=== PATIENT | female | born 1970 | race Caucasian/White ===

== ENCOUNTER 2017-02-28 08:30 | Inpatient (IN) ==
[2017-02-28] MEDS ORDERED: 0.9 % Sodium Chloride 1,000 ML IVC ONE ×2 (09:05→10:18)
[2017-02-28] MEDS ORDERED: *HR* HYDROmorphone (PF) 1 MG/ML SYRINGE IVP ONE ×2 (09:05→11:06)
[2017-02-28] MEDS ORDERED: Ondansetron 4 MG/2 ML VIAL IVP ONE ×2 (09:05→11:07)
--- NOTE | 2017-02-28 09:06 | Emergency Department Note ---
Disposition Clinical Impression: Ureterolithiasis, Pyelonephritis, PETTY (acute kidney injury) Leukocytosis Qualifiers: Leukocytosis type: unspecified Qualified Code(s): D72.829 - Elevated white blood cell count, unspecified Disposition: Admitted As Inpatient Condition: Fair Time of Disposition: 11:11 Abdominal Pain HPI - General Chief Complaint: ED Abdominal Pain Stated Complaint: kidney stone Time Seen by Provider: 02/28/17 08:40 Source: patient Mode of arrival: ambulatory Limitations: no limitations Nursing Notes Reviewed: Yes Vital Signs Reviewed: Yes - History of Present Illness HPI Narrative: 46-year-old female hx HLD, HTN, DM, with history of ureter stones, presents complaining of right flank pain, 8 out of 10, patient states that she has had a history of ureteral stone extractions, records review shows that this was with Dr. Brandon. She did have a CT scan at [facility] yesterday, that showed a kidney stone that "need surgery" per the patient she also has hematuria and dysuria. She has had temperatures 102 degrees at home. She denies fevers today. She reports some nausea but denies vomiting, denies chest pain or shortness of breath. She brought the disc with her to be scan that shows the CT scan from [facility]. Pt Subjective Complaint: abdominal pain, flank pain (R) Consistency: intermittent Location: R flank Pain Severity: severe Pain Scale: 9 Quality: cramping, aching, sharp Radiation: RLQ Improves with: nothing Worsens with: nothing Associated symptoms: Reports: nausea, constipation, dysuria, hematuria. Denies : vomiting, diarrhea, melena Treatments prior to arrival: OTC medications - Related Data Home Medications Medication Instructions Recorded Confirmed Aspirin [Adult Low Dose Aspirin EC] 81 mg PO DAILY 10/28/15 06/08/16 Atorvastatin [Lipitor] 40 mg PO HS 10/28/15 06/08/16 Buspirone HCl [Buspar] 15 mg PO BID 10/28/15 06/08/16 Cholecalciferol (Vitamin D3) 1,000 unit PO DAILY 10/28/15 06/08/16 [Vitamin D3] Docusate Sodium [Dok] 250 mg PO HS 10/28/15 06/08/16 Gabapentin [Neurontin] 1,200 mg PO TID 10/28/15 06/08/16 Ibuprofen [Motrin] 600 mg PO Q8H 10/28/15 06/08/16 Insulin NPH Hum/Reg Insulin Hm 46 unit SQ QPM 10/28/15 06/08/16 [Humulin 70/30 Kwikpen] Insulin NPH/REG 70/30 (HUMAN) 36 unit SQ QAM 10/28/15 06/08/16 [Humulin 70/30 Vial] Losartan Potassium [Cozaar] 50 mg PO HS 10/28/15 06/08/16 Metoprolol [Lopressor] 100 mg PO BID 10/28/15 06/08/16 Omeprazole [PriLOSEC] 40 mg PO HS 10/28/15 06/08/16 Tizanidine HCl 4 mg PO Q8H PRN 10/28/15 06/08/16 Trazodone HCl [TraZODone] 100 mg PO HS 10/28/15 06/08/16 Acetaminophen/Butalbital/Caffe 1 each PO DAILY PRN 06/08/16 06/08/16 [Fioricet] Albuterol Sulfate [Ventolin Hfa] 2 puff IH Q4H PRN 06/08/16 06/08/16 Buprenorphine HCl/Naloxone HCl 1 each SL DAILY 06/08/16 06/08/16 [Buprenorphin-Naloxon 8-2 mg Sl] Quetiapine Fumarate [Seroquel] 100 mg PO HS 06/08/16 06/08/16 Previous Rx's Medication Instructions Recorded Oxycodone HCl/Acetaminophen 1 each PO Q6H PRN #15 tablet 06/08/16 [Endocet 10-325 mg Tablet] Phenazopyridine [Pyridium] 200 mg PO TID #30 tablet 06/08/16 Allergies Allergy/AdvReac Type Severity Reaction Status Date / Time sertraline [From Zoloft] Allergy Swelling Verified 02/28/17 08:38 of Lip/Tongue/Throat propoxyphene AdvReac Itching Verified 02/28/17 08:38 [From Darvocet-N 100] Review of Systems: 10 Point ROS was performed and negative except as per below or as documented in HPI. Constitutional: Denies: fever Eyes: Denies: eye pain ENT: Denies: nasal congestion CV: Denies: chest pain Resp: Denies: cough, hemoptysis GI: +right flank Denies: hematochezia per HPI MSK: Denies: neck pain, extremity pain Skin: Denies: new rashes Neuro: Denies: paresthesias or weakness All systems ED: reviewed and negative except as stated. Review of Systems: As Per HPI Abdominal Pain PMH - Past Medical History Medical history: Reports: diabetes, hepatitis, hyperlipidemia, hypertension, kidney stones, other Female Surgical History: Reports: appendectomy, hysterectomy, other Psychiatric history: Reports: anxiety, depression - Social History Smoking status: Current every day smoker Alcohol use: Reports: none Drug use: Reports: opiates Physical Exam Constitutional: Appears uncomfortable, vital signs stable Eyes: PERRLA, sclera anicteric Neck: normal inspection, neck is supple Resp: CTA bilaterally, no resp distress CV: RRR, no m/g/r GI: normal inspection, soft, mild right lower quadrant tenderness palpation no guarding or rigidity Back: normal inspection + right CVA tenderness Neuro: A&O3, CNII-XII grossly intact, SAHNI MSK: no gross deformities, normal ROM UE and LE Skin: on limited exam, skin intact with no rashes or lesions - General Limitations: no limitations General appearance: alert, in no apparent distress Course Course Narrative: 46-year-old female with suspected nephrolithiasis or ureterolithiasis, I did review the CT scan from [facility] and it appears that she has a 3 mm distal ureter stone with some perinephric stranding, and mild to moderate hydronephrosis. CBC BMP started IV fluids, - Reevaluation(s) Reevaluation #1: I did discuss the case with Dr. Pennington he agrees patient warrants inpatient admission given leukocytosis of 29, we started the patient. Plan Zosyn, she does not meet criteria for Sirs therefore does not need for sepsis however acute pyelonephritis with very elevated leukocytosis, urinalysis was pending, started on Zosyn given 2 L of fluids and more antiemetics and analgesics secondary to pain, urology consult was placed, hospitalist accepted Olimpia Time: 11:55 Vital Signs Temperature 98.2 F 02/28/17 08:34 Pulse Rate 80 02/28/17 08:34 Respiratory Rate 16 02/28/17 08:34 Blood Pressure 114/70 02/28/17 08:34 O2 Sat by Pulse Oximetry 92 02/28/17 08:34 Temperature 98.2 F 02/28/17 08:34 Pulse Rate 80 02/28/17 08:34 Respiratory Rate 16 02/28/17 12:02 Blood Pressure 112/61 02/28/17 12:02 O2 Sat by Pulse Oximetry 92 02/28/17 08:34 Oxygen Delivery Oxygen Delivery Room Air Abdominal Pain - Differential Diagnosis Differential Diagnosis: Likely: calculus of kidney, diverticulitis, gastroenteritis - Medical Records Medical records reviewed: Yes I reviewed the patient's medical records. - Lab Data Lab results reviewed: Yes I reviewed the patient's lab results. Lab results narrative: Urinalysis from 02/27/17 at [facility] shows negative leukocyte esterase and negative nitrate appearance cloudy color orange white blood cells 20-50 RBCs 20-10-20 bacteria 3+, obscured due to color. Result diagrams: 02/28/17 09:18 02/28/17 09:18 Lab Results 02/28/17 02/28/17 Range/Units 09:18 09:18 WBC 29.1 H (4.3-11.1) K/mcL RBC 4.15 (3.82-4.97) M/mcL Hgb 13.2 (11.5-15.4) g/dL Hct 39.4 (35.3-44.9) % MCV 94.9 (83.0-100.0) fL MCH 31.8 (28.0-33.3) pg MCHC 33.5 (31.6-35.5) g/dL RDW 12.3 (11.5-14.5) % Plt Count 156 (140-400) K/mcL MPV 10.5 (9.4-12.4) fL Immature Gran % 1.1 (0-4) % Seg Neutrophils % 89.8 % Lymphocytes % 3.2 % Monocytes % 5.7 % Eosinophils % 0.0 % Basophils % 0.2 % Neutrophils # 26.1 H (1.6-8.9) K/mcL Lymphocytes # 0.9 (0.6-4.6) K/mcL Monocytes # 1.7 H (0.0-1.3) K/mcL Eosinophils # 0.0 (0.0-0.6) K/mcL Basophils # 0.1 (0.0-0.2) K/mcL Dohle Bodies Present A (Not Present) Platelet Estimate Normal (Normal) Sodium 136 (136-145) mEq/L Potassium 3.9 (3.5-4.5) mEq/L Chloride 106 (98-109) mEq/L Carbon Dioxide 22 (19-29) mEq/L BUN 22 H (7-20) mg/dL Creatinine 1.25 H (0.57-1.11) mg/dL Est GFR ( Amer) 56 L (> 60) Est GFR (Non-Af Amer) 46 L (> 60) BUN/Creatinine Ratio 18 (6-26) Glucose 383 H (70-99) mg/dL Calculated Osmolality 301 H (280-300) Calcium 9.2 (8.6-10.8) mg/dL - Radiology Data Radiology results reviewed: Yes I reviewed the patient's radiology results. 3 mm calculus in the distal right ureter causing mild hydronephrosis nonobstructing bilateral renal calculi CT scan. - EKG Data EKG attestation: Yes I reviewed and interpreted this EKG. Attestation Statement - Attestation Attestation: I personally interviewed and examined this patient and my medical decision- making was reviewed with the Resident Physician, Dr. Gordon. I agree with the documented findings, disposition and treatment plan as described except to the extent set forth below. Patient is a 46-year-old white female with a history of insulin-dependent diabetes mellitus who presents to the emergency room in today with complaint of "an infected stone". Patient left [facility] AGAINST MEDICAL ADVICE yesterday after being evaluated and diagnosed with pyelonephritis as well as a knee stone and they wanted to transfer her here as her urologist is part of the [facility]. Patient arrives here complaining of ongoing right flank pain, dysuria and polyuria, as well as nausea and vomiting. Patient states she has been having subjective fevers and chills at home and that her sugar has been elevated. I agree with patient's physical exam findings as documented. Sent with hemodynamically stable with stable vital signs on arrival. Vision IV saline well-established IV fluids were initiated, labs were drawn and sent as well as urine and urine culture ordered. An patient was sent for imaging. Patient's labs were significant for a leukocytosis with a left shift, white count equals 29. Patient also with acute renal insufficiency likely due to dehydration. Patient has hyperglycemia but no acidosis at this time. CT scan shows ureterolithiasis on the right with mild hydro-. Patient's urinalysis is consistent with urinary tract infection. Patient remained hemodynamically stable while in the emergency department. Patient will be admitted for further evaluation of pyelonephritis and concurrent ureterolithiasis. Antibiotics were initiated in the emergency department IV. Case was discussed with both urology who was consulate from the ED as well as the hospitalist. Hospitalist excepted patient for admission.
[2017-02-28 09:25] LABS: Basophils # 0.1 K/mcL (0.0-0.2); Basophils % 0.2 %; Hematocrit 39.4 % (35.3-44.9); Hemoglobin 13.2 g/dL (11.5-15.4); Immature Granulocytes % 1.1 % (0-4); Lymphocytes # 0.9 K/mcL (0.6-4.6); Lymphocytes % 3.2 %; Mean Corpuscular HGB Conc 33.5 g/dL (31.6-35.5); Mean Corpuscular Hemoglobin 31.8 pg (28.0-33.3); Mean Corpuscular Volume 94.9 fL (83.0-100.0); Mean Platelet Volume 10.5 fL (9.4-12.4); Monocytes # 1.7 K/mcL (0.0-1.3); Monocytes % 5.7 %; Neutrophils # 26.1 K/mcL (1.6-8.9); Platelet Count 156 K/mcL (140-400); Red Blood Count 4.15 M/mcL (3.82-4.97); Red Cell Distribution Width 12.3 % (11.5-14.5); Segmented Neutrophils % 89.8 %
[2017-02-28 09:36] LABS: Calcium 9.2 mg/dL (8.6-10.8); Potassium 3.9 mEq/L (3.5-4.5)
[2017-02-28 09:45] LABS: Dohle Bodies Present (Not Present); Platelet Estimate Normal (Normal)
[2017-02-28] MEDS ORDERED: Piperacillin/Tazobactam 3.375 GM in D5% in Water (Mini-Bag+) 100 ML IVPB ONE (09:54)
[2017-02-28 12:16] LABS: Bilirubin,Urine Negative (Negative); Blood,Urine Large (Negative); Clarity,Urine Cloudy (Clear); Color,Urine Dark Yellow (Yellow); Glucose,Urine (UA) >=1000 mg/dL (Normal); Ketones,Urine Negative (Negative); Leukocyte Esterase,Urine Moderate (Negative); Nitrite,Urine Positive (Negative); Protein,Urine >=300 mg/dL (Neg-Trace); Specific Gravity,Urine 1.025 (1.010-1.025); Urobilinogen,Urine Normal (Normal)
[2017-02-28 12:18] LABS: Bacteria,Urine Few per hpf (None-Few); Hyaline Casts,Urine None Seen per lpf (None-Few); RBC,Urine TNTC per hpf (0-3); Squamous Epithelial Cell,Urine Moderate per lpf (None-Few); WBC,Urine TNTC per hpf (0-3)
[2017-02-28] MEDS ORDERED: Ondansetron 4 MG/2 ML VIAL IVP PRN (13:49)
[2017-02-28] MEDS ORDERED: Acetaminophen 325 MG TABLET PO PRN (13:49)
[2017-02-28] MEDS ORDERED: Naloxone 0.4 MG/ML INJ IVP PRN (13:49)
[2017-02-28] MEDS ORDERED: *HR* HYDROcodone/Acet 5/325 mg TABLET PO PRN (13:49)
[2017-02-28] MEDS ORDERED: 0.9 % Sodium Chloride 1,000 ML IVC SCH (14:00)
--- NOTE | 2017-02-28 15:11 | Internal Med History&Physical ---
Date of Encounter: 02/28/17 Time of Encounter: 12:00 Assessment and Plan (1) Pyelonephritis Current visit: Yes Status: Acute Patient presents with right-sided flank pain and abdominal pain that she rates as an 8/10. She states that the pain has been present for the past few days and has become worse with blood in her urine. Patient has a history of renal stones and extractions and is followed by Dr. Brandon. She went to [facility] where a CT scan showed a stone in the right distal ureter. Nephrology consult ordered and discussed with Dr. Pennington. Will continue IV Zosyn for infection coverage. Continue patient's pyridium. NPO after midnight for planned procedure tomorrow. (2) PETTY (acute kidney injury) Current visit: Yes Status: Acute Patient presents with GFR of 46 on admission with complaint of abdominal pain and right-sided flank pain. Patient has history of renal stones and extractions and CT scan currently shows bilateral renal calculi. Will use IV fluids judiciously and monitor follow-up labs. Monitor I&O and daily weight. (3) Ureterolithiasis Current visit: Yes Status: Acute Patient presents with renal calculi confirmed with CT today. Patient has a history of renal stones and extractions. Nephrology consult ordered and discussed with Dr. Pennington who plans to do procedure tomorrow. Will continue IV Zosyn for pyelonephritis, IV fluids judiciously, stair-step pain medications for pain management, and place patient NPO after midnight for procedure. (4) Leukocytosis Current visit: Yes Status: Acute Patient presents with WBCs of 29.1 on admission to ED. IV Zosyn administered in ED and will be continued for infection coverage. Follow-up labs ordered to monitor patient's to WBCs. Qualifiers: Leukocytosis type: unspecified Qualified Code(s): D72.829 - Elevated white blood cell count, unspecified (5) Abdominal wall pain in right flank Current visit: Yes Status: Acute Patient presents with severe abdominal pain in right flank. She rates her pain at 8/10. Will administer stair-step pain medications PRN for pain management. (6) Diabetes Current visit: Yes Status: Chronic Patient presents with history of chronic diabetes with insulin dependency. Blood glucose monitoring before meals at bedtime. A1c ordered. Will continue patient's 46 units of insulin p.m. and administer low-dose correction insulin sliding scale as needed with hypoglycemia protocol ordered. Qualifiers: Diabetes mellitus type: type 2 Diabetes mellitus complication status: with kidney complications Diabetes mellitus complication detail: with chronic kidney disease Diabetes mellitus residential insulin use: with superintendent terminal use Chronic kidney disease stage: stage 3 (moderate) Qualified Code(s): E11.22 - Type 2 diabetes mellitus with diabetic chronic kidney disease; N18.3 - Chronic kidney disease, stage 3 (moderate); Z79.4 - custodial (current) use of insulin (7) HLD (hyperlipidemia) Current visit: Yes Status: Chronic Patient presents with history of chronic hyperlipidemia. Lipid panel ordered. Will continue patient's Lipitor. Qualifiers: Hyperlipidemia type: pure hypercholesterolemia Qualified Code(s): E78.00 - Pure hypercholesterolemia, unspecified; E78.0 - Pure hypercholesterolemia (8) HTN (hypertension) Current visit: Yes Status: Chronic Patient presents with history of chronic hypertension. Will monitor patient and vital signs. Will continue patient's Cozaar. Qualifiers: Hypertension type: essential hypertension Qualified Code(s): I10 - Essential (primary) hypertension (9) DVT prophylaxis Current visit: Yes Status: Acute Patient to be placed on DVT prophylaxis due to current admission protocol and bedrest status. Intermittent SCDs to be placed on patient's LE's. Internal Medicine - H&P: HPI Chief complaint: Abdominal Pain/Right Flank Pain Admitted From: Emergency Dept Plans for Post Hospital Care: Home History of present illness: Ms. Todd is a 46 year old female who presents from the ED with chief complaint of right-sided flank pain and abdominal pain that she rates as an 8/ 10. She states that the pain has been present for the past few days and has become worse with blood in her urine. Patient has a history of renal stones and extractions and is followed by Dr. Brandon. She went to [facility] where a CT scan showed a stone in the right distal ureter. She states she was febrile at home with 102 F fever but she is currently afebrile in the ED. She reports nausea, abdominal pain, and right-sided flank pain that is cramping aching and sharp. She denies chest pain, shortness of breath, recent illness, vomiting, changes in vision, dizziness, presyncope, syncope. Mrs. Todd has a history of diabetes with insulin dependency, hepatitis C, hyperlipidemia, hypertension, and renal stones. She is a current every day smoker smoking 1/2- 2 packs per day. Initial urinalysis in ED was indicative of possible infection so urine culture ordered. CT scan shows a 3 mm distal ureter stone with some perinephritic stranding and mild to moderate hydronephrosis. Mrs. Todd is at moderate risk for continued renal failure based on history and current symptoms are replaced as inpatient status with orders for urology placed in ED. Patient to receive IV Zosyn for infection coverage, IV fluids, stair-step pain management, and cardiac diet with nothing by mouth tonight for a.m. testing. Discussed plan with Dr. Pennington who plans to do procedure tomorrow. Will monitor patient for pain, I&O, and complications. Time spent with patient > 40 minutes. Past Med Surg Social Fam HX - Past Medical History Source: patient Medical history: diabetes, hepatitis, hyperlipidemia, hypertension, kidney stones, other Psychiatric history: anxiety, depression - Past Surgical History Surgical History: appendectomy, hysterectomy (Total) - Social History Smoking Status: Current every day smoker Packs per day: 1.5 - 2 PPD Smokeless Tobacco Status: No Alcohol use: none Drug use: opiates Current living situation: Home Activity Level: Independent ambulation Recent Out of Country Travel Within the Last 8 Weeks: No Exposure or Possible Exposure to Illness During Travel: No - Family History Father Race: Family Member Ethnicity: Non- Living Status: Still Living Hx Family Cardiac Disorders: Yes (HTN) Hx Family Endocrine Disorder: Yes (DM) Mother Race: Family Member Ethnicity: Non- Living Status: Still Living Hx Family Cardiac Disorders: Yes (HTN) Hx Family Endocrine Disorder: Yes (DM) Sister Race: Family Member Ethnicity: Non- Living Status: Still Living Hx Family Endocrine Disorder: Yes (DM) Internal Medicine - H&P: Meds Aspirin [Adult Low Dose Aspirin EC] 81 mg PO DAILY 10/28/15 [History] Atorvastatin [Lipitor] 40 mg PO HS 10/28/15 [History] Cholecalciferol (Vitamin D3) [Vitamin D3] 1,000 unit PO DAILY 10/28/15 [History] Gabapentin [Neurontin] 1,200 mg PO TID 10/28/15 [History] Ibuprofen [Motrin] 600 mg PO Q8H 10/28/15 [History] Insulin NPH Hum/Reg Insulin Hm [Humulin 70/30 Kwikpen] 46 unit SQ QPM 10/28/15 [ History] Losartan Potassium [Cozaar] 50 mg PO HS 10/28/15 [History] Omeprazole [PriLOSEC] 40 mg PO HS 10/28/15 [History] Tizanidine HCl 4 mg PO Q8H PRN 10/28/15 [History] Acetaminophen/Butalbital/Caffe [Fioricet] 1 each PO DAILY PRN 06/08/16 [History] Albuterol Sulfate [Ventolin Hfa] 2 puff IH Q4H PRN 06/08/16 [History] Buprenorphine HCl/Naloxone HCl [Buprenorphin-Naloxon 8-2 mg Sl] 1 each SL TID [History] Phenazopyridine [Pyridium] 200 mg PO TID PRN 02/28/17 [History] Allergies sertraline [From Zoloft] Allergy (Verified 02/28/17 08:38) Swelling of Lip/Tongue/Throat propoxyphene [From Darvocet-N 100] Adverse Reaction (Verified 02/28/17 08:38) Itching All Systems PM: A 10-system review of systems was performed and is negative for pertinent findings except as documented above in the HPI. - Constitutional Constitutional: as per HPI, fever(s) - EENT Eyes: no change in vision, no discharge, no pain, no photophobia Ears: no ear discharge, no ear pain, no tinnitus Nose, mouth and throat: no dysphagia, no nasal discharge, no neck pain, no sore throat - Breasts Breasts: as per HPI - Cardiovascular Cardiovascular ROS IM: no chest pain, no diaphoresis, no dyspnea, no lightheadedness, no palpitations, no syncope - Respiratory Respiratory: no cough, no dyspnea, no wheezing, no excessive phlegm production - Gastrointestinal Gastrointestinal: as per HPI, abdominal pain - Genitourinary Genitourinary: as per HPI, flank pain (Right-sided), hematuria Menstruation: as per HPI - Musculoskeletal Musculoskeletal ROS IM: no numbness, no tingling - Integumentary Integumentary IM: no rash, no unusual bruising - Neurological Neurological ROS: no confusion, no convulsions, no focal weakness, no numbness, no tingling, no tremor(s) - Psychiatric Psychiatric: as per HPI - Endocrine Endocrine IM: as per HPI - Hematologic/Lymphatic Hematologic/Lymphatic: no easy bruising - Allergic/Immunologic Allergic/Immunologic: as per HPI - Constitutional Vitals: Temp Pulse Resp BP Pulse Ox 98.2 F 77 16 100/56 92 02/28/17 13:23 02/28/17 13:23 02/28/17 13:23 02/28/17 13:23 02/28/17 13:23 General appearance: Present: cooperative, mild distress, A&O X 3, pleasant, obese, answers questions appropriately - Head Head exam: Present: atraumatic, normocephalic - Eye Eye exam: Present: PERRL, conjuntiva pink, sclera anicteric Pupils: Present: PERRL - ENT ENT exam: Present: normal exam, normal external ear exam - Neck Neck exam general surgery: Present: normal inspection, supple, trachea midline - Respiratory Respiratory exam: Present: CTAB. Absent: accessory muscle use, rales, rhonchi, wheezes - Cardiovascular Cardiovascular exam: Present: RRR, +S1, +S2. Absent: diastolic murmur, gallop, rubs, systolic murmur - GI/Abdominal GI/Abdominal exam: Present: normal bowel sounds, soft, no peritoneal signs. Absent: distended, tenderness - Rectal Rectal exam: Present: deferred - Additional comments: exam deferred. - Extremities Exam Extremities exam: Present: warm, radial pulses palpable and symetrical. Absent : calf tenderness, cyanotic, pedal edema - Back Exam Back exam: Present: normal inspection - Neurological Exam Neurological exam: Present: CN II-XII intact, oriented X3, no focal deficits. Absent: pronater drift, facial droop, speech deficit - Psychiatric Psychiatric exam: Present: normal affect, normal mood - Skin Skin exam: Present: dry, intact Internal Med - H&P Results - Labs CBC & Chem 7: 02/28/17 09:18 02/28/17 09:18 Labs: Urine 02/28/17 Range/Units 12:07 Urine Color Dark Yellow (Yellow) Urine Clarity Cloudy A (Clear) Urine pH 6.0 (5.0-8.0) pH Units Ur Specific [place] 1.025 (1.010-1.025) Urine Protein >=300 H (Neg-Trace) mg/dL Urine Glucose (UA) >=1000 H (Normal) mg/dL
[2017-02-28] MEDS ORDERED: tiZANidine 4 MG TABLET PO PRN (16:58)
--- NOTE | 2017-02-28 16:58 | Urology - Consult Note ---
Date of Encounter: 02/28/17 Time of Encounter: 16:56 - Assessment and Plan (1) Leukocytosis Current Visit: Yes Status: Acute Assessment and plan: Patient likely has pyelonephritis with this markedly elevated WBC count. Continue broad-spectrum antibiotics. Cultures obtained. Qualifiers: Leukocytosis type: unspecified Qualified Code(s): D72.829 - Elevated white blood cell count, unspecified (2) Ureterolithiasis Current Visit: Yes Status: Acute Assessment and plan: Patient will be scheduled for cystoscopy and bilateral ureteral stent placement tomorrow in the operating room. Urology CN:HPI Consult date: 02/28/17 Reason for consult Urology: Hydronephrosis Requesting physician: Jay Matthews History of present illness: Nerissa is a 46-year-old female with a history of recent trip to outside hospital emergency department. Patient left AMA from that facility. She then came to our facility where she was found to have a elevated white count of 29, 000. CT scan from outside facility revealed bilateral ureteral stones. The patient's right ureteral stone was distal and the left was proximal. Patient states that she has significant bilateral flank discomfort. She has had fevers up to 102/103 at home. No nausea or vomiting at this time. Past Med Surg Social Fam HX - Past Medical History Medical history: diabetes, hepatitis, hyperlipidemia, hypertension, kidney stones, other Psychiatric history: anxiety, depression - Past Surgical History Surgical History: appendectomy, hysterectomy (Total) - Social History Smoking Status: Current every day smoker Packs per day: 1.5 - 2 PPD Smokeless Tobacco Status: No Alcohol use: none Drug use: opiates - Family History Father Race: Family Member Ethnicity: Non- Living Status: Still Living Hx Family Cardiac Disorders: Yes (HTN) Hx Family Endocrine Disorder: Yes (DM) Mother Race: Family Member Ethnicity: Non- Living Status: Still Living Hx Family Cardiac Disorders: Yes (HTN) Hx Family Endocrine Disorder: Yes (DM) Sister Race: Family Member Ethnicity: Non- Living Status: Still Living Hx Family Endocrine Disorder: Yes (DM) Medications and Allergies Aspirin [Adult Low Dose Aspirin EC] 81 mg PO DAILY 10/28/15 [History] Atorvastatin [Lipitor] 40 mg PO HS 10/28/15 [History] Cholecalciferol (Vitamin D3) [Vitamin D3] 1,000 unit PO DAILY 10/28/15 [History] Gabapentin [Neurontin] 1,200 mg PO TID 10/28/15 [History] Ibuprofen [Motrin] 600 mg PO Q8H 10/28/15 [History] Insulin NPH Hum/Reg Insulin Hm [Humulin 70/30 Kwikpen] 46 unit SQ QPM 10/28/15 [ History] Losartan Potassium [Cozaar] 50 mg PO HS 10/28/15 [History] Omeprazole [PriLOSEC] 40 mg PO HS 10/28/15 [History] Tizanidine HCl 4 mg PO Q8H PRN 10/28/15 [History] Acetaminophen/Butalbital/Caffe [Fioricet] 1 each PO DAILY PRN 06/08/16 [History] Albuterol Sulfate [Ventolin Hfa] 2 puff IH Q4H PRN 06/08/16 [History] Buprenorphine HCl/Naloxone HCl [Buprenorphin-Naloxon 8-2 mg Sl] 1 each SL TID [History] Phenazopyridine [Pyridium] 200 mg PO TID PRN 02/28/17 [History] Allergies sertraline [From Zoloft] Allergy (Verified 02/28/17 08:38) Swelling of Lip/Tongue/Throat propoxyphene [From Darvocet-N 100] Adverse Reaction (Verified 02/28/17 08:38) Itching Review of Systems - Constitutional fever(s) - EENT Nose, mouth and throat: no dizziness - Cardiovascular no chest pain - Respiratory no cough - Gastrointestinal abdominal pain - Musculoskeletal back pain - Integumentary no erythema - Neurological no confusion - Hematologic/Lymphatic no easy bleeding - Allergic/Immunologic no throat swelling Exam Initial Vital Signs Temp Pulse Resp BP Pulse Ox 98.2 F 80 16 114/70 92 02/28/17 08:34 02/28/17 08:34 02/28/17 08:34 02/28/17 08:34 02/28/17 08:34 - General physical appearance Present: well developed - Eyes Present: PERRL - ENT Present: normal nares - Neck Present: no masses - Respiratory Present: normal respiratory effort - Cardiovascular Cardiovascular exam IM: RRR - Abdomen Abdomen: Present: soft - Integumentary Present: no rash - Neurologic Present: normal coordination Urology Results - Labs 02/28/17 09:18 02/28/17 09:18 Abnormal lab results WBC 29.1 K/mcL (4.3-11.1) H 02/28/17 09:18 Neutrophils # 26.1 K/mcL (1.6-8.9) H 02/28/17 09:18 Monocytes # 1.7 K/mcL (0.0-1.3) H 02/28/17 09:18 Dohle Bodies Present (Not Present) A 02/28/17 09:18 BUN 22 mg/dL (7-20) H 02/28/17 09:18 Creatinine 1.25 mg/dL (0.57-1.11) H 02/28/17 09:18 Est GFR ( Amer) 56 (> 60) L 02/28/17 09:18 Est GFR (Non-Af Amer) 46 (> 60) L 02/28/17 09:18 Glucose 383 mg/dL (70-99) H 02/28/17 09:18 POC Glucose 310 (58-89) H 02/28/17 16:05 Calculated Osmolality 301 (280-300) H 02/28/17 09:18 Urine Clarity Cloudy (Clear) A 02/28/17 12:07 Urine Protein >=300 mg/dL (Neg-Trace) H 02/28/17 12:07 Urine Glucose (UA) >=1000 mg/dL (Normal) H 02/28/17 12:07 Urine Blood Large (Negative) H 02/28/17 12:07 Urine Nitrite Positive (Negative) A 02/28/17 12:07 Ur Leukocyte Esterase Moderate (Negative) H 02/28/17 12:07 Urine Microscopic RBC TNTC per hpf (0-3) H 02/28/17 12:07 Urine Microscopic WBC TNTC per hpf (0-3) H 02/28/17 12:07 Ur Squamous Epith Cells Moderate per lpf (None-Few) H 02/28/17 12:07 Ur Culture Indicated? YES (NO) A 02/28/17 12:07 All other labs normal. - Imaging CT scan - abdomen: image reviewed CT scan - pelvis: image reviewed Consult Discharge Plan - Plan Referrals: Kaylee Brady, RHIA [Primary Care Provider] -
[2017-02-28] MEDS ORDERED: Dextrose Gel 15 GM PO PRN ×2 (17:00)
[2017-02-28] MEDS ORDERED: D5% in Water 1,000 ML IVC PRN (17:00)
[2017-02-28] MEDS ORDERED: *HR* Dextrose 50 % in Water (Syg) 50 ML SYRINGE IVP PRN (17:00)
[2017-02-28] MEDS ORDERED: Insulin NPH/REG 70/30 100 UNIT/ML (x5UNIT) SQ SCH (18:00)
--- NOTE | 2017-02-28 19:21 | Anesthesia Evaluation PreOp ---
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 HX Other Medical History: Hepatic (Hepatitis), Renal (Acute Renal Injury), Diabetes Type II Anesthesia History: No Prior Anesthetic Complications : No (Hysterectomy) Alcohol Use: none Drug use: opiates Medications and Allergies Aspirin [Adult Low Dose Aspirin EC] 81 mg PO DAILY 10/28/15 [History] Atorvastatin [Lipitor] 40 mg PO HS 10/28/15 [History] Cholecalciferol (Vitamin D3) [Vitamin D3] 1,000 unit PO DAILY 10/28/15 [History] Gabapentin [Neurontin] 1,200 mg PO TID 10/28/15 [History] Ibuprofen [Motrin] 600 mg PO Q8H 10/28/15 [History] Insulin NPH Hum/Reg Insulin Hm [Humulin 70/30 Kwikpen] 46 unit SQ QPM 10/28/15 [ History] Losartan Potassium [Cozaar] 50 mg PO HS 10/28/15 [History] Omeprazole [PriLOSEC] 40 mg PO HS 10/28/15 [History] Tizanidine HCl 4 mg PO Q8H PRN 10/28/15 [History] Acetaminophen/Butalbital/Caffe [Fioricet] 1 each PO DAILY PRN 06/08/16 [History] Albuterol Sulfate [Ventolin Hfa] 2 puff IH Q4H PRN 06/08/16 [History] Buprenorphine HCl/Naloxone HCl [Buprenorphin-Naloxon 8-2 mg Sl] 1 each SL TID [History] Phenazopyridine [Pyridium] 200 mg PO TID PRN 02/28/17 [History] Allergies sertraline [From Zoloft] Allergy (Verified 02/28/17 08:38) Swelling of Lip/Tongue/Throat propoxyphene [From Darvocet-N 100] Adverse Reaction (Verified 02/28/17 08:38) Itching - Meds/Allergy Pre-op Review Medications Reviewed: Yes Allergies Reviewed: Yes Beta Blockers on Current Med List: Yes Anesthesia Results - Labs 02/28/17 09:18 02/28/17 09:18 - Imaging EKG: report reviewed (Sinus Hari) Anesthesia Exam O2 Sat Height 1.68 m Height 1.68 m Weight 86.9 kg Weight 86.545 kg O2 Sat by Pulse Oximetry 94 O2 Sat by Pulse Oximetry 92 O2 Sat by Pulse Oximetry 92 Vital Signs Temp Pulse Resp BP Pulse Ox 98.2 F 80 16 114/70 92 02/28/17 08:34 02/28/17 08:34 02/28/17 08:34 02/28/17 08:34 02/28/17 08:34 Height: 5'6 Weight: 191 lbs NPO (# of Hours): MN Pain Scale: 0 - HEENT Pupil (Motor): Pupils equal, EOMI Mallampati: III Teeth: Normal (Small Mouth opening) Oral Opening: Less than or equal to 3 - BEAN [employer]OUT [employer]ER LOC: Oriented [employer] Motor: Normal RUE, Normal LUE, Normal RLE, Normal LLE, Normal Face [employer] Sensory: Normal: RUE, LUE, RLE, LLE, Face - Cardiac Rhythm: Regular Murmur: None JVD: No Carotid Bruit: No - Pulmonary Breath Sounds: bilateral Clear Respiratory Effort: Symmetrical Anesthesia Assess/Plan ASA Score: 3 (HTN DM Hepatitis) Modified Ricardo Scale for Level of Consciousness: Cooperative, oriented, and tranquil Anesthetic Plan: General Monitoring Plan: Standard Monitors Recovery Plan: PACU (Discussed GA, agrees to proceed)
[2017-02-28] MEDS ORDERED: Insulin LISPRO 300 UNITS/3 ML VIAL SQ SCH (21:00)
[2017-02-28] MEDS: Gabapentin 400 MG CAPSULE PO SCH (21:41)
[2017-02-28] MEDS: Pantoprazole 40 MG VIAL IVP SCH (21:41)
[2017-02-28] MEDS: Nicotine 2 MG GUM BC SCH ×2 (21:42→21:57)
[2017-02-28] MEDS: *HR* Morphine 2 MG/ML SYRINGE IVP PRN (21:50)
[2017-02-28] MEDS: Piperacillin/Tazobactam 3.375 GM in D5% in Water (Mini-Bag+) 100 ML IVPB SCH (22:04)
[2017-03-01 00:04] LABS: Acinetobacter baumannii by PCR Not Detected (Not Detect); Candida albicans by PCR Not Detected (Not Detect); Candida glabrata by PCR Not Detected (Not Detect); Candida krusei by PCR Not Detected (Not Detect); Candida parapsilosis by PCR Not Detected (Not Detect); Candida tropicalis by PCR Not Detected (Not Detect); Enterococcus by PCR Not Detected (Not Detect); Escherichia coli by PCR Not Detected (Not Detect); Klebsiella oxytoca by PCR Not Detected (Not Detect); Klebsiella pneumoniae by PCR ***DETECTED*** (Not Detect); Pseudomonas aeruginosa by PCR Not Detected (Not Detect); Serratia marcescens by PCR Not Detected (Not Detect); Staphylococcus aureus by PCR Not Detected (Not Detect); Streptococcus agalactiae(B)PCR Not Detected (Not Detect); Streptococcus by PCR Not Detected (Not Detect); Streptococcus pneumoniae PCR Not Detected (Not Detect); Streptococcus pyogenes (A) PCR Not Detected (Not Detect); blaKPC Carbapenem-Resist Gene Not Detected (Not Detect); mecA Methicillin-Resist Gene Not Detected (Not Detect); vanA/B Vancomycin-Resist Genes Not Detected (Not Detect)
[2017-03-01] MEDS: Nicotine 2 MG GUM BC SCH ×6 (00:12→21:34)
[2017-03-01] MEDS: Piperacillin/Tazobactam 3.375 GM in D5% in Water (Mini-Bag+) 100 ML IVPB SCH ×3 (00:21→14:10)
[2017-03-01] MEDS: *HR* Morphine 2 MG/ML SYRINGE IVP PRN ×3 (06:12→21:35)
[2017-03-01 06:52] LABS: Basophils # 0.1 K/mcL (0.0-0.2); Basophils % 0.2 %; Eosinophils % 0.1 %; Immature Granulocytes % 0.7 % (0-4); Lymphocytes # 1.2 K/mcL (0.6-4.6); Lymphocytes % 5.9 %; Mean Corpuscular HGB Conc 33.1 g/dL (31.6-35.5); Mean Corpuscular Hemoglobin 31.6 pg (28.0-33.3); Mean Corpuscular Volume 95.4 fL (83.0-100.0); Mean Platelet Volume 11.2 fL (9.4-12.4); Monocytes # 1.2 K/mcL (0.0-1.3); Monocytes % 5.6 %; Neutrophils # 18.3 K/mcL (1.6-8.9); Platelet Count 107 K/mcL (140-400); Red Blood Count 3.67 M/mcL (3.82-4.97); Red Cell Distribution Width 12.7 % (11.5-14.5); Segmented Neutrophils % 87.5 %
[2017-03-01 06:57] LABS: INR 1.3; Prothrombin Time 13.9 Seconds (9.4-12.1)
[2017-03-01 06:59] LABS: Activated Partial Thrombo Time 28.8 Seconds (26.0-36.0)
[2017-03-01 07:02] LABS: Hemoglobin A1C 7.3 %
[2017-03-01 07:07] LABS: Albumin 2.4 g/dL (3.5-5.0); Albumin/Globulin Ratio 0.7 (1.1-2.2); Bilirubin,Total 0.4 mg/dL (0.2-1.2); Calcium 9.3 mg/dL (8.6-10.8); Globulin 3.6 g/dL (2.4-3.5); Magnesium 1.7 mg/dL (1.6-2.6); Potassium 3.7 mEq/L (3.5-4.5)
[2017-03-01 07:22] LABS: Hemoglobin 11.6 g/dL (11.5-15.4)
[2017-03-01] MEDS ORDERED: Cholecalciferol (D-3) 1,000 UNIT TABLET PO SCH (09:00)
[2017-03-01] MEDS ORDERED: Aspirin Enteric Coated 81 MG Tablet PO SCH (09:00)
--- NOTE | 2017-03-01 09:13 | Urology Progress Note ---
Date of Encounter: 03/01/17 Time of Encounter: 09:12 - Assessment and Plan (1) Leukocytosis Current Visit: Yes Status: Acute Qualifiers: Leukocytosis type: unspecified Qualified Code(s): D72.829 - Elevated white blood cell count, unspecified (2) Ureterolithiasis Current Visit: Yes Status: Acute Assessment and plan: to OR today for bilateral ureteral stent placement Progress Note Narrative: patient seen. wbc improved. still with pain. Objective Initial Vital Signs Temp Pulse Resp BP Pulse Ox 98.2 F 80 16 114/70 92 02/28/17 08:34 02/28/17 08:34 02/28/17 08:34 02/28/17 08:34 02/28/17 08:34 - General physical appearance Present: well developed - Abdomen Present: soft - Labs 03/01/17 06:40 03/01/17 06:40 Diabetes panel 03/01/17 03/01/17 Range/Units 06:40 06:40 Sodium 138 (136-145) mEq/L Potassium 3.7 (3.5-4.5) mEq/L Chloride 110 H (98-109) mEq/L Carbon Dioxide 21 (19-29) mEq/L BUN 23 H (7-20) mg/dL Creatinine 1.27 H (0.57-1.11) mg/dL Glucose 209 H (70-99) mg/dL Hemoglobin A1c 7.3 H ( - 5.6) % Calcium 9.3 (8.6-10.8) mg/dL AST 9 (5-34) Units/L ALT 9 (0-55) Units/L Alkaline Phosphatase 88 (38-126) Units/L Albumin 2.4 L (3.5-5.0) g/dL Triglycerides 114 (< 150) mg/dL HDL Cholesterol 23 L (40-59) mg/dL Calcium panel 03/01/17 Range/Units 06:40 Calcium 9.3 (8.6-10.8) mg/dL Albumin 2.4 L (3.5-5.0) g/dL Pituitary panel 03/01/17 Range/Units 06:40 Sodium 138 (136-145) mEq/L Potassium 3.7 (3.5-4.5) mEq/L Chloride 110 H (98-109) mEq/L Carbon Dioxide 21 (19-29) mEq/L BUN 23 H (7-20) mg/dL Creatinine 1.27 H (0.57-1.11) mg/dL Glucose 209 H (70-99) mg/dL Calcium 9.3 (8.6-10.8) mg/dL Adrenal panel 03/01/17 Range/Units 06:40 Sodium 138 (136-145) mEq/L Potassium 3.7 (3.5-4.5) mEq/L Chloride 110 H (98-109) mEq/L Carbon Dioxide 21 (19-29) mEq/L BUN 23 H (7-20) mg/dL Creatinine 1.27 H (0.57-1.11) mg/dL Glucose 209 H (70-99) mg/dL Calcium 9.3 (8.6-10.8) mg/dL Total Bilirubin 0.4 (0.2-1.2) mg/dL AST 9 (5-34) Units/L ALT 9 (0-55) Units/L Alkaline Phosphatase 88 (38-126) Units/L Albumin 2.4 L (3.5-5.0) g/dL Consult Discharge Plan - Plan Referrals: Kaylee Brady, TAWANA [Primary Care Provider] - 03/09/17 1:00 pm
[2017-03-01] MEDS: Gabapentin 400 MG CAPSULE PO SCH ×2 (09:35→16:54)
[2017-03-01] MEDS: Pantoprazole 40 MG VIAL IVP SCH (09:35)
[2017-03-01] MEDS: Insulin LISPRO 300 UNITS/3 ML VIAL SQ SCH ×3 (10:22→16:55)
[2017-03-01] MEDS ORDERED: Lidocaine -MPF 2% 2 ML VIAL ONE (14:45)
[2017-03-01] MEDS ORDERED: *HR* Midazolam HCl 2 MG/2 ML VIAL ONE (14:45)
[2017-03-01] MEDS ORDERED: Ondansetron 4 MG/2 ML VIAL ONE (14:45)
[2017-03-01] MEDS ORDERED: *HR* FentaNYL (PF) 100 MCG/2 ML VIAL ONE (14:45)
[2017-03-01] MEDS ORDERED: Dexamethasone 4 MG/ML VIAL ONE (14:45)
[2017-03-01] MEDS ORDERED: Ketorolac 30 MG/ML VIAL ONE (14:45)
[2017-03-01] MEDS ORDERED: *HR* Propofol 200 MG/20 ML VIAL IVP ONE (14:46)
--- NOTE | 2017-03-01 15:44 | Operative Note ---
Date of procedure: 03/01/17 Pre-op diagnosis: bilateral ureteral stones and pyelonephritis Post-op diagnosis: same Procedure: Cystoscopy and bilateral 6 x 24 cm ureteral stent placement Anesthesia: CECE Surgeon: Marlon Pennington Condition: stable Disposition: PACU Procedure in Detail: Patient was prepped and draped in normal sterile fashion. The cystoscope was inserted into the patient's bladder. At this point I then cannulated the right ureteral orifice using a Glidewire. A 6 x 24 cm stent was then placed with good curl seen in the right kidney and in the bladder. I then repeated this on the left side again with good curl seen in the left kidney and in the bladder. Bladder was drained procedure was ended. Patient will need to continue with IV antibiotics until culture results return.
[2017-03-01] MEDS ORDERED: Acetaminophen IV 1,000 MG/100 ML INFUS..BTL IVPB ONE (16:04)
--- NOTE | 2017-03-01 16:14 | Anesthesia Evaluation Post Op ---
Date of Encounter: 03/01/17 Time of Encounter: 16:13 - Vital Signs Vital Signs: Vital Signs/O2 Sat, Most Current Temp Pulse Resp BP Pulse Ox 97.8 F 64 16 102/61 94 03/01/17 15:48 03/01/17 16:08 03/01/17 16:08 03/01/17 16:08 03/01/17 16:08 - Lungs Lungs: Clear Ascult./Percussion - Airway Airway: Non-obstructed - Cardiovascular Regular Rate - Mental Status Mental Status: Alert & Oriented, Answers Appropriately - Pain Pain Scale: 7 (improved from 9/10) Pain Scale used: Numeric (1 - 10) - Nausea Vomiting Nausea Vomiting: Not Present - Hydration Hydration: NPO, Whitten catheter - Discharge PostOp Status: Transfer Patient to floor
--- NOTE | 2017-03-01 17:37 | Internal Med Progress Note ---
Date of Encounter: 03/01/17 Time of Encounter: 11:45 - Assessment and plan (1) Gram-negative bacteremia Current Visit: Yes Status: Acute Assessment and plan: Secondary to UTI and pyelonephritis. Continue IV antibiotics and repeat blood cultures. Remaining plan as below. (2) Ureterolithiasis Current Visit: Yes Status: Acute Assessment and plan: CT abdomen/pelvis from [facility] shows right distal ureteral stone. Urology consulted, plan for ureteral stent placement today. Continue IV hydration, IV antibiotics. (3) Pyelonephritis Current Visit: Yes Status: Acute Assessment and plan: Patient presents with leukocytosis, subjective fever and right flank tenderness , mild lactic acidosis. Urine culture and one out of one initial blood culture grows gram-negative rods. Continue IV Zosyn, follow up final urine culture and repeat blood cultures. IV hydration and supportive care. Pain control with when necessary IV morphine. (4) PETTY (acute kidney injury) Current Visit: Yes Status: Acute Assessment and plan: Serum creatinine stable. Continue IV hydration. (5) Diabetes Current Visit: Yes Status: Chronic Assessment and plan: Blood sugars noted to be elevated, likely due to stress from underlying infection. Adjust sliding scale insulin and monitor blood sugars closely. Diabetic diet when tolerated. Check hemoglobin A1c. 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 Chronic kidney disease stage: stage 3 (moderate) Qualified Code(s): E11.22 - Type 2 diabetes mellitus with diabetic chronic kidney disease; N18.3 - Chronic kidney disease, stage 3 (moderate); Z79.4 - petroleum terminal plant operator (current) use of insulin (6) HLD (hyperlipidemia) Current Visit: Yes Status: Chronic Qualifiers: Hyperlipidemia type: unspecified Qualified Code(s): E78.5 - Hyperlipidemia , unspecified (7) HTN (hypertension) Current Visit: Yes Status: Chronic Qualifiers: Hypertension type: essential hypertension Qualified Code(s): I10 - Essential (primary) hypertension - Subjective Interval history: Reports lower abdominal and right-sided flank pain. Improved chills, nausea and vomiting. Awaiting ureteral stent placement today. - Constitutional Vitals: Temp Pulse Resp BP Pulse Ox 97.6 F 81 16 110/70 96 03/01/17 16:36 03/01/17 16:36 03/01/17 16:36 03/01/17 16:36 03/01/17 16:36 General appearance: Present: mild distress, A&O X 3, obese, answers questions appropriately - Respiratory Respiratory exam: Present: CTAB. Absent: accessory muscle use, rales, rhonchi, wheezes - Cardiovascular Cardiovascular exam: Present: RRR, +S1, +S2. Absent: diastolic murmur, gallop, rubs, systolic murmur - GI/Abdominal GI/Abdominal exam: Present: normal bowel sounds, soft, no peritoneal signs. Absent: distended, tenderness - Back Exam Back exam: Present: CVA tenderness (R) Internal Medicine: Result - Labs CBC & Chem 7: 03/01/17 06:40 03/01/17 06:40 Labs: Short CBC 03/01/17 Range/Units 06:40 WBC 20.9 H (4.3-11.1) K/mcL Hgb 11.6 D (11.5-15.4) g/dL Hct 35.0 L (35.3-44.9) % Plt Count 107 L (140-400) K/mcL Neutrophils # 18.3 H (1.6-8.9) K/mcL BMP 03/01/17 06:40 Sodium 138 Potassium 3.7 Chloride 110 H Carbon Dioxide 21 BUN 23 H Creatinine 1.27 H Glucose 209 H Calcium 9.3 Liver Function 03/01/17 Range/Units 06:40 Total Bilirubin 0.4 (0.2-1.2) mg/dL AST 9 (5-34) Units/L ALT 9 (0-55) Units/L Alkaline Phosphatase 88 (38-126) Units/L Albumin 2.4 L (3.5-5.0) g/dL - ABG Interpretation ABG results: PT/INR, D-dimer PT 13.9 Seconds (9.4-12.1) H 03/01/17 06:40 - Impressions Impressions Fluoroscopy 03/01/17 15:35 IMPRESSION: Intraprocedural fluoroscopic spot images as above. See separate procedure report for more information. D/ / Jenny Benítez MD / Jenny Benítez MD Interpreting Provider: Jenny Benítez MD Consult Discharge Plan - Plan Referrals: Kaylee Brady CNP [Primary Care Provider] - 03/09/17 1:00 pm
[2017-03-01] MEDS ORDERED: Naloxone 0.4 MG/ML INJ IVP PRN (19:48)
[2017-03-01] MEDS ORDERED: D5% in Water 1,000 ML IVC PRN (19:48)
[2017-03-01] MEDS ORDERED: Dextrose Gel 15 GM PO PRN ×2 (19:48)
[2017-03-01] MEDS ORDERED: *HR* HYDROcodone/Acet 5/325 mg TABLET PO PRN (19:48)
[2017-03-01] MEDS ORDERED: 0.9 % Sodium Chloride 1,000 ML IVC SCH (19:48)
[2017-03-01] MEDS ORDERED: Acetaminophen 325 MG TABLET PO PRN (19:48)
[2017-03-01] MEDS ORDERED: *HR* Dextrose 50 % in Water (Syg) 50 ML SYRINGE IVP PRN (19:48)
[2017-03-01] MEDS ORDERED: Ondansetron 4 MG/2 ML VIAL IVP PRN (19:48)
[2017-03-01] MEDS ORDERED: tiZANidine 4 MG TABLET PO PRN (19:48)
[2017-03-01] MEDS ORDERED: Insulin LISPRO 300 UNITS/3 ML VIAL SQ SCH (21:00)
[2017-03-01] MEDS ORDERED: Gabapentin 400 MG CAPSULE PO SCH (21:00)
[2017-03-01] MEDS ORDERED: Piperacillin/Tazobactam 3.375 GM in D5% in Water (Mini-Bag+) 100 ML IVPB SCH (22:00)
[2017-03-01 23:39] LABS: Enterococcus by PCR Not Detected (Not Detect); blaKPC Carbapenem-Resist Gene Not Detected (Not Detect); mecA Methicillin-Resist Gene Not Detected (Not Detect); vanA/B Vancomycin-Resist Genes Not Detected (Not Detect)
[2017-03-01 23:40] LABS: Acinetobacter baumannii by PCR Not Detected (Not Detect); Candida albicans by PCR Not Detected (Not Detect); Candida glabrata by PCR Not Detected (Not Detect); Candida krusei by PCR Not Detected (Not Detect); Escherichia coli by PCR Not Detected (Not Detect); Klebsiella oxytoca by PCR Not Detected (Not Detect); Klebsiella pneumoniae by PCR ***DETECTED*** (Not Detect); Pseudomonas aeruginosa by PCR Not Detected (Not Detect); Serratia marcescens by PCR Not Detected (Not Detect); Staphylococcus aureus by PCR Not Detected (Not Detect); Streptococcus agalactiae(B)PCR Not Detected (Not Detect); Streptococcus by PCR Not Detected (Not Detect); Streptococcus pneumoniae PCR Not Detected (Not Detect); Streptococcus pyogenes (A) PCR Not Detected (Not Detect)
[2017-03-01 23:41] LABS: Candida parapsilosis by PCR Not Detected (Not Detect); Candida tropicalis by PCR Not Detected (Not Detect)
[2017-03-02] MEDS ORDERED: Insulin Human Regular 10 UNIT in 0.9 % Sodium Chloride 10 ML IV ONE (01:30)
[2017-03-02] MEDS: *HR* Morphine 2 MG/ML SYRINGE IVP PRN (02:12)
[2017-03-02] MEDS: Nicotine 2 MG GUM BC SCH (02:39)
[2017-03-02 04:34] VITALS: BP 122/73
[2017-03-02] MEDS ORDERED: Insulin LISPRO 300 UNITS/3 ML VIAL SQ SCH (07:30)
[2017-03-02] MEDS ORDERED: Pantoprazole 40 MG VIAL IVP SCH (09:00)
[2017-03-02] MEDS ORDERED: Aspirin Enteric Coated 81 MG Tablet PO SCH (09:00)
[2017-03-02] MEDS ORDERED: Cholecalciferol (D-3) 1,000 UNIT TABLET PO SCH (09:00)
[2017-03-02] MEDS ORDERED: Insulin NPH/REG 70/30 100 UNIT/ML (x5UNIT) SQ SCH (18:00)
--- NOTE | 2017-03-03 16:58 | Discharge Summary ---
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 Chronic kidney disease stage: stage 3 (moderate) Qualified Code(s): E11.22 - Type 2 diabetes mellitus with diabetic chronic kidney disease; N18.3 - Chronic kidney disease, stage 3 (moderate); 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 of insulin (6) HLD (hyperlipidemia) Priority: Secondary Status: Chronic Qualifiers: Hyperlipidemia type: unspecified Qualified Code(s): E78.5 - Hyperlipidemia , unspecified (7) HTN (hypertension) Priority: Secondary Status: Chronic Qualifiers: Hypertension type: essential hypertension Qualified Code(s): I10 - Essential (primary) hypertension - Discharge Medications Home Medications: Aspirin [Adult Low Dose Aspirin EC] 81 mg PO DAILY 10/28/15 [History] Atorvastatin [Lipitor] 40 mg PO HS 10/28/15 [History] Cholecalciferol (Vitamin D3) [Vitamin D3] 1,000 unit PO DAILY 10/28/15 [History] Gabapentin [Neurontin] 1,200 mg PO TID 10/28/15 [History] Ibuprofen [Motrin] 600 mg PO Q8H 10/28/15 [History] Insulin NPH Hum/Reg Insulin Hm [Humulin 70/30 Kwikpen] 46 unit SQ QPM 10/28/15 [ History] Losartan Potassium [Cozaar] 50 mg PO HS 10/28/15 [History] Omeprazole [PriLOSEC] 40 mg PO HS 10/28/15 [History] Tizanidine HCl 4 mg PO Q8H PRN 10/28/15 [History] Acetaminophen/Butalbital/Caffe [Fioricet] 1 tab PO DAILY PRN 06/08/16 [History] Albuterol Sulfate [Ventolin Hfa] 2 puff IH Q4H PRN 06/08/16 [History] Buprenorphine HCl/Naloxone HCl [Buprenorphin-Naloxon 8-2 mg Sl] 1 tab SL TID [History] Buspirone HCl [Buspar] 15 mg PO BID 03/01/17 [History] Metoprolol [Lopressor] 100 mg PO BID 03/01/17 [History] Quetiapine Fumarate [SEROquel] 100 mg PO HS 03/01/17 [History] Rosuvastatin [Crestor] 20 mg PO HS 03/01/17 [History] Trazodone HCl 100 mg PO HS 03/01/17 [History] Allergies/Adverse Reactions: Allergies sertraline [From Zoloft] Allergy (Verified 02/28/17 08:38) Swelling of Lip/Tongue/Throat propoxyphene [From Darvocet-N 100] Adverse Reaction (Verified 02/28/17 08:38) Itching Date of admission: 02/28/17 13:49 Primary care physician: Kaylee Brady CNP Consults: 03/01/17 11:53 Consult to Invasive Line Access Team [CONS] Routine Reason for Consult: poor venous access Line Type: EPIV PICC line indications: Limited vascular access Time Notified: 11:53 Call Completed: Yes Anticipated date of discharge: 03/02/17 - Patient Status Disposition: Left Against Medical Advice Condition: Fair - Discharge Instructions Follow Up With: Kaylee Brady CNP [Primary Care Provider] - 03/09/17 1:00 pm Hospital course: Ms. Todd is a 46 year old female who was admitted with severe right-sided pyelonephritis and ureterolithiasis associated with acute kidney injury. Patient was started on aggressive IV hydration, IV antibiotics. She was noted to have leukocytosis and mild lactic acidosis. Urology was consulted and patient underwent bilateral ureteral stent placement. Initial blood and urine cultures grew gram-negative rods, repeat blood cultures were pending. Patient left AGAINST MEDICAL ADVICE this morning, prior to my shift cleaning to have some family issues at home. She was noted to be alert and oriented at time of leaving. - Time Spent with Patient Total time spent providing and/or coordinating discharge services: - Constitutional Vitals: Temp Pulse Resp BP Pulse Ox 98.9 F 67 14 122/73 98 03/02/17 04:32 03/02/17 04:32 03/02/17 04:32 03/02/17 04:32 03/02/17 04:32 General appearance: Present: A&O X 3, obese, answers questions appropriately
== END 2017-03-02 05:00 | disposition left against medical advice (07) | DRG 463 ==
LOC: EMEROO 08:30 → 2NENU 08:30
PROVIDERS: ADMIT Internal Medicine Endocrinology, Diabetes & Metabolism; ATTEND Internal Medicine

== ENCOUNTER 2017-03-27 10:15 | Inpatient (IN) ==
--- NOTE | 2017-03-27 10:36 | Emergency Department Note ---
Disposition Clinical Impression: Pyelonephritis Disposition: Admitted As Inpatient Condition: Good Referrals: Kaylee Brady CNP [Primary Care Provider] - Forms: ED Satisfaction Letter Female Urogenital HPI - General Chief complaint: ED Back Pain/Injury Stated complaint: Kidney infection sent to be admitted Time Seen by Provider: 03/27/17 10:20 Source: patient Mode of arrival: private vehicle Limitations: no limitations Nursing Notes Reviewed: Yes Vital Signs Reviewed: Yes - History of Present Illness HPI Narrative: 46-year-old female history of recurring UTIs and pyelonephritis who presents to the ER with a chief complaint of UTI. Patient states that she was in the hospital roughly 1 month ago whenever she had stents placed for bilateral kidney stones. She reports she still has those stents in. She states that she follows with urology and finished her Levaquin on Tuesday. She states on Tuesday of this week she started developing fevers of 103 at home. She reports continued dysuria and hematuria. She was seen at an outside facility on Tuesday where she had labs and urinalysis performed and was called today by her urologist office to be admitted for IV antibiotics due to her culture. Patient reports a prior history of multiple nephrolithiasis. She denies abdominal pain currently. She does feel nauseated but no vomiting. No other complaints. Pt Subjective Complaint: dysuria, "UTI" Onset (ago): day(s) Radiation: non-radiating Severity: moderate Quality: aching Duration: constant Improves with: none Worsens with: urination Urinary Symptoms: dysuria, hematuria : no Associated symptoms: Reports: nausea/vomiting, fever/chills. Denies: abdominal pain - Related Data Home Medications Medication Instructions Recorded Confirmed Atorvastatin [Lipitor] 40 mg PO HS 10/28/15 03/27/17 Cholecalciferol (Vitamin D3) 1,000 unit PO DAILY 10/28/15 03/27/17 [Vitamin D3] Gabapentin [Neurontin] 1,200 mg PO TID 10/28/15 03/27/17 Ibuprofen [Motrin] 600 mg PO Q8H 10/28/15 03/27/17 Losartan Potassium [Cozaar] 50 mg PO HS 10/28/15 03/27/17 Omeprazole [PriLOSEC] 40 mg PO HS 10/28/15 03/27/17 Tizanidine HCl 4 mg PO Q8H PRN 10/28/15 03/27/17 Acetaminophen/Butalbital/Caffe 1 tab PO DAILY PRN 06/08/16 03/27/17 [Fioricet] Albuterol Sulfate [Ventolin Hfa] 2 puff IH Q4H PRN 06/08/16 03/27/17 Metoprolol [Lopressor] 100 mg PO BID 03/01/17 03/27/17 Aspirin [Aspirin] 81 mg PO DAILY 03/27/17 03/27/17 Buprenorphine HCl [Subutex] 8 mg SL TID 03/27/17 03/27/17 Hyoscyamine SL [Levsin SL] 0.125 mg SL Q6H PRN 03/27/17 03/27/17 Allergies Allergy/AdvReac Type Severity Reaction Status Date / Time levofloxacin [From Levaquin] Allergy See Verified 03/27/17 10:20 Comments sertraline [From Zoloft] Allergy Swelling Verified 03/27/17 10:20 of Lip/Tongue/Throat propoxyphene AdvReac Itching Verified 03/27/17 10:20 [From Darvocet-N 100] All systems ED: reviewed and negative except as stated. Constitutional: Reports: fever, chills Cardiovascular: Denies: chest pain Respiratory: Denies: dyspnea Gastrointestinal: Reports: nausea. Denies: abdominal pain, vomiting, diarrhea Genitourinary: Reports: dysuria, hematuria Past Medical History - Past Medical History Attestation: Yes The following information was validated with the patient. Source: patient Medical history: Reports: diabetes, hepatitis, hyperlipidemia, hypertension, kidney stones, other Surgical history: Reports: appendectomy, hysterectomy Psychiatric history: Reports: anxiety, depression - Social History Smoking Status: Current every day smoker Smokeless Tobacco Status: No Alcohol use: Reports: none Drug use: Reports: opiates Physical Exam - General Limitations: no limitations General appearance: alert, in no apparent distress - Head Head exam: atraumatic, normocephalic, normal inspection - Eye Eye exam: Present: normal appearance, EOMI - ENT ENT exam: normal exam - Neck Neck exam: Present: normal inspection, full ROM - Chest Chest inspection: Present: normal inspection, symmetric chest wall rise - Respiratory Respiratory exam: Present: normal lung sounds bilaterally - Cardiovascular Cardiovascular exam: Present: regular rate, normal rhythm, normal heart sounds - Abdominal Exam Abdominal exam: Present: soft, Non-Tender. Absent: tenderness, distention, rigidity - Extremities Exam Extremities exam: Present: normal inspection, full ROM - Expanded Upper Extremity Exam Shoulder exam: Present: normal inspection, full ROM Arm exam: Present: normal inspection, full ROM Elbow exam: Present: normal inspection, full ROM Forearm/Wrist exam: Present: normal inspection, full ROM Hand exam: Present: normal inspection, full ROM - Expanded Lower Extremity Exam Hip/Pelvis exam: Present: normal inspection, full ROM Upper leg exam: Present: normal inspection, full ROM Knee exam: Present: normal inspection, full ROM Lower leg exam: Present: normal inspection, full ROM Ankle exam: Present: normal inspection, full ROM Foot/toe exam: Present: normal inspection, full ROM Neurovascular/Tendon exam: Absent: motor deficit, sensory deficit - Back Exam Back exam: Present: CVA tenderness (R), CVA tenderness (L) - Neurological Exam Neurological exam: Present: alert, other (GCS 15. Nonfocal neurologic exam. Moves all extremities equally.) - Psychiatric Psychiatric exam: Present: normal affect, normal mood - Skin Skin exam: Present: warm, dry, intact, normal color Course Course Narrative: Patient seen and examined. Vital signs reviewed. She has bilateral flank pain with a prior history of pyelonephritis. Fevers at home of 103. I reviewed her recent culture showing Klebsiella ESBL that were resistant to anything other than IV medications. We will repeat her urinalysis here as well as basic labs and will likely require admission for IV antibiotics for pyelonephritis. - Reevaluation(s) Reevaluation #1: Urinalysis demonstrates a UTI. Her white count here 17. Her most recent cultures were sensitive to Zosyn. Patient admitted to the hospitalist service for further management. Vital Signs Temperature 99.3 F 03/27/17 10:17 Pulse Rate 100 03/27/17 10:17 Respiratory Rate 18 03/27/17 10:17 Blood Pressure 152/92 03/27/17 10:17 O2 Sat by Pulse Oximetry 96 03/27/17 10:17 Temperature 99.3 F 03/27/17 10:17 Pulse Rate 100 03/27/17 10:17 Respiratory Rate 18 03/27/17 10:17 Blood Pressure 152/92 03/27/17 10:17 O2 Sat by Pulse Oximetry 96 03/27/17 10:17 Oxygen Delivery Oxygen Delivery Room Air Urogenital-Female - MDM Narrative Medical decision making narrative: 46-year-old female presents to the ER due to dysuria and flank pain. Prior history of renal stones, ureteral stents and pyelonephritis. She was recently treated and finished on Tuesday. She reports fevers 103 at home. She is a prior history of Klebsiella ESBL that is resistant to oral antibiotics. Her urinalysis today shows UTI here. Her white count was 17. She is afebrile. Patient given IV fluids, morphine and Zosyn for antibiotic coverage. She will likely require admission to the hospital for infectious disease and picc consultation for parenteral antibiotics. Patient accepted to the hospitalist service - Lab Data Lab results reviewed: Yes I reviewed the patient's lab results. Result diagrams: 03/27/17 10:51 03/27/17 10:51 Lab Results 03/27/17 03/27/17 03/27/17 Range/Units 10:35 10:35 10:51 WBC 17.4 H (4.3-11.1) K/mcL RBC 3.77 L (3.82-4.97) M/mcL Hgb 11.5 (11.5-15.4) g/dL Hct 34.9 L (35.3-44.9) % MCV 92.6 (83.0-100.0) fL MCH 30.5 (28.0-33.3) pg MCHC 33.0 (31.6-35.5) g/dL RDW 12.5 (11.5-14.5) % Plt Count 279 (140-400) K/mcL MPV 10.0 (9.4-12.4) fL Immature Gran % 0.4 (0-4) % Seg Neutrophils % 76.9 % Lymphocytes % 10.9 % Monocytes % 9.2 % Eosinophils % 2.4 % Basophils % 0.2 % Neutrophils # 13.4 H (1.6-8.9) K/mcL Lymphocytes # 1.9 (0.6-4.6) K/mcL Monocytes # 1.6 H (0.0-1.3) K/mcL Eosinophils # 0.4 (0.0-0.6) K/mcL Basophils # 0.0 (0.0-0.2) K/mcL Sodium (136-145) mEq/L Potassium (3.5-4.5) mEq/L Chloride (98-109) mEq/L Carbon Dioxide (19-29) mEq/L BUN (7-20) mg/dL Creatinine (0.57-1.11) mg/dL Est GFR ( Amer) (> 60) Est GFR (Non-Af Amer) (> 60) BUN/Creatinine Ratio (6-26) Glucose (70-99) mg/dL Calculated Osmolality (280-300) Calcium (8.6-10.8) mg/dL Urine Color Yellow (Yellow) Urine Clarity Cloudy A (Clear) Urine pH 6.5 (5.0-8.0) pH Units Ur Specific [place] 1.011 (1.010-1.025) Urine Protein 100 H (Neg-Trace) mg/dL Urine Glucose (UA) Normal (Normal) mg/dL Urine Ketones Negative (Negative) mg/dL Urine Blood Large H (Negative) Urine Nitrite Negative (Negative) Urine Bilirubin Negative (Negative) Urine Urobilinogen Normal (Normal) mg/dL Ur Leukocyte Esterase Large H (Negative) Urine Microscopic RBC 30-50 H (0-3) per hpf Urine Microscopic WBC TNTC H (0-3) per hpf Ur Squamous Epith Cells Few (None-Few) per lpf Urine Bacteria Many H (None-Few) per hpf Hyaline Casts None Seen (None-Few) per lpf Ur Culture Indicated? YES A (NO) Urine Test Negative (Negative) 03/27/17 Range/Units 10:51 WBC (4.3-11.1) K/mcL RBC (3.82-4.97) M/mcL Hgb (11.5-15.4) g/dL Hct (35.3-44.9) % MCV (83.0-100.0) fL MCH (28.0-33.3) pg MCHC (31.6-35.5) g/dL RDW (11.5-14.5) % Plt Count (140-400) K/mcL MPV (9.4-12.4) fL Immature Gran % (0-4) % Seg Neutrophils % % Lymphocytes % % Monocytes % % Eosinophils % % Basophils % % Neutrophils # (1.6-8.9) K/mcL Lymphocytes # (0.6-4.6) K/mcL Monocytes # (0.0-1.3) K/mcL Eosinophils # (0.0-0.6) K/mcL Basophils # (0.0-0.2) K/mcL Sodium 135 L (136-145) mEq/L Potassium 3.5 (3.5-4.5) mEq/L Chloride 101 (98-109) mEq/L Carbon Dioxide 23 (19-29) mEq/L BUN 12 (7-20) mg/dL Creatinine 0.86 (0.57-1.11) mg/dL Est GFR ( Amer) > 60 (> 60) Est GFR (Non-Af Amer) > 60 (> 60) BUN/Creatinine Ratio 14 (6-26) Glucose 252 H (70-99) mg/dL Calculated Osmolality 288 (280-300) Calcium 9.5 (8.6-10.8) mg/dL Urine Color (Yellow) Urine Clarity (Clear) Urine pH (5.0-8.0) pH Units Ur Specific [place] (1.010-1.025) Urine Protein (Neg-Trace) mg/dL Urine Glucose (UA) (Normal) mg/dL Urine Ketones (Negative) mg/dL Urine Blood (Negative) Urine Nitrite (Negative) Urine Bilirubin (Negative) Urine Urobilinogen (Normal) mg/dL Ur Leukocyte Esterase (Negative) Urine Microscopic RBC (0-3) per hpf Urine Microscopic WBC (0-3) per hpf Ur Squamous Epith Cells (None-Few) per lpf Urine Bacteria (None-Few) per hpf Hyaline Casts (None-Few) per lpf Ur Culture Indicated? (NO) Urine Test (Negative) S.B.A.R. - S.B.A.R. Situation: Demographics, MOA Background: Presenting Complaint, Relevant PMH, Meds, & Allergies Assessment: Vital Signs, Course and respsone to treatment, Exam Concerns, Patient/Family Expectation, Pertinant Lab Results, Outstanding Labs Recommendation: Barrier(s) to disposition, Recommendation based on pending studies, treatments, or consults S.B.A.R. Report Given to: Carlota HaiderBBecky Alvarez Time: 12:21
[2017-03-27] MEDS ORDERED: Ondansetron 4 MG/2 ML VIAL IVP ONE (10:37)
[2017-03-27] MEDS ORDERED: *HR* Morphine 2 MG/ML SYRINGE IVP ONE (10:37)
[2017-03-27 10:44] LABS: Bilirubin,Urine Negative (Negative); Blood,Urine Large (Negative); Clarity,Urine Cloudy (Clear); Color,Urine Yellow (Yellow); Glucose,Urine (UA) Normal (Normal); Ketones,Urine Negative (Negative); Leukocyte Esterase,Urine Large (Negative); Nitrite,Urine Negative (Negative); PH,Urine 6.5 pH Units (5.0-8.0); Protein,Urine 100 mg/dL (Neg-Trace); Specific Gravity,Urine 1.011 (1.010-1.025); Urobilinogen,Urine Normal (Normal)
[2017-03-27 10:48] LABS: Hyaline Casts,Urine None Seen per lpf (None-Few); Squamous Epithelial Cell,Urine Few per lpf (None-Few); WBC,Urine TNTC per hpf (0-3)
[2017-03-27 10:56] LABS: Basophils % 0.2 %; Eosinophils # 0.4 K/mcL (0.0-0.6); Eosinophils % 2.4 %; Hematocrit 34.9 % (35.3-44.9); Hemoglobin 11.5 g/dL (11.5-15.4); Immature Granulocytes % 0.4 % (0-4); Lymphocytes # 1.9 K/mcL (0.6-4.6); Lymphocytes % 10.9 %; Mean Corpuscular Hemoglobin 30.5 pg (28.0-33.3); Mean Corpuscular Volume 92.6 fL (83.0-100.0); Monocytes # 1.6 K/mcL (0.0-1.3); Monocytes % 9.2 %; Neutrophils # 13.4 K/mcL (1.6-8.9); Platelet Count 279 K/mcL (140-400); Red Blood Count 3.77 M/mcL (3.82-4.97); Red Cell Distribution Width 12.5 % (11.5-14.5); Segmented Neutrophils % 76.9 %
[2017-03-27 10:58] LABS: Bacteria,Urine Many per hpf (None-Few); RBC,Urine 30-50 per hpf (0-3)
[2017-03-27 11:08] LABS: BUN/Creatinine Ratio 14 (6-26); Blood Urea Nitrogen 12 mg/dL (7-20); Calcium 9.5 mg/dL (8.6-10.8); Carbon Dioxide 23 mEq/L (19-29); Chloride 101 mEq/L (98-109); Glucose 252 mg/dL (70-99); Osmolality,Calculated 288 (280-300); Potassium 3.5 mEq/L (3.5-4.5); Sodium 135 mEq/L (136-145); eGFR For African Americans > 60 (> 60); eGFR For Non-African Americans > 60 (> 60)
--- NOTE | 2017-03-27 11:20 | Emergency Department Note ---
START Narrative - START START: I examined this patient and my medical decision-making was reviewed with the MACHINE FIXER/PA/Advanced Practice Nurse/Resident Physician. I agree with the documented findings, disposition and treatment plan as described except to the extent set forth below. ED attending: Patient's emergency medicine resident Dr. GOULD. Please see copy of this note for H&P evaluation and management and ED disposition. We both had independent [id number] time in contact with this patient. Briefly: A 46-year-old female history of bilateral renal stents from stones in infection was on oral antibiotics spiked a fever of 103 Tuesday seen in urgent care sent home. Persistent symptoms here now. Patient will get IV fluids blood tests urinalysis. Admission anticipated. Dr. Pennington is her urologist. Disposition pending. Provided 30 minutes of critical care service for this patient.
[2017-03-27] MEDS ORDERED: Piperacillin/Tazobactam 3.375 GM in D5% in Water (Mini-Bag+) 100 ML IVPB ONE (11:42)
[2017-03-27] MEDS ORDERED: *HR* HYDROcodone/Acet 5/325 mg TABLET PO PRN (14:18)
[2017-03-27] MEDS ORDERED: Naloxone 0.4 MG/ML INJ IVP PRN (14:18)
[2017-03-27] MEDS ORDERED: Ondansetron 4 MG/2 ML VIAL IVP PRN (14:18)
[2017-03-27] MEDS ORDERED: *HR* Morphine 2 MG/ML SYRINGE IVP PRN (14:18)
[2017-03-27] MEDS ORDERED: Acetaminophen 325 MG TABLET PO PRN (14:18)
[2017-03-27] MEDS ORDERED: Acetaminophen/Butalbital/CaffeineTABLET PO PRN (14:25)
[2017-03-27] MEDS ORDERED: Hyoscyamine SL 0.125 MG TAB.SUBL SL PRN (14:25)
[2017-03-27] MEDS ORDERED: tiZANidine 4 MG TABLET PO PRN (14:25)
[2017-03-27] MEDS ORDERED: Dextrose Gel 15 GM PO PRN ×2 (14:28)
[2017-03-27] MEDS ORDERED: D5% in Water 1,000 ML IVC PRN (14:28)
[2017-03-27] MEDS ORDERED: *HR* Dextrose 50 % in Water (Syg) 50 ML SYRINGE IVP PRN (14:28)
[2017-03-27] MEDS ORDERED: *HR* Buprenorphine HCl 8 MG TAB.SUBL SL SCH (15:00)
[2017-03-27] MEDS: *HR* Heparin 5,000 UNIT/ML VIAL SQ SCH (15:18)
[2017-03-27] MEDS: Pantoprazole 40 MG VIAL IVP SCH (15:18)
[2017-03-27] MEDS: Ibuprofen 600 MG TABLET PO SCH (16:54)
[2017-03-27] MEDS: Ertapenem 1,000 MG in 0.9 % Sodium Chloride Mini Bag 100 ML IVPB SCH (16:55)
[2017-03-27] MEDS: Gabapentin 400 MG CAPSULE PO SCH ×2 (16:55→19:51)
[2017-03-27] MEDS: 0.9 % Sodium Chloride 1,000 ML IVC SCH (16:58)
[2017-03-27] MEDS: Insulin LISPRO 300 UNITS/3 ML VIAL SQ SCH ×2 (17:06→19:52)
--- NOTE | 2017-03-27 18:10 | Event Note ---
Date of Encounter: 03/27/17 Time of Encounter: 18:06 1. Sepsis secondary to urinary tract infection/possible acute pyelonephritis with history of Klebsiella and Escherichia coli both ESBL Completed 14 days of Levaquin recently treated Klebsiella, Escherichia coli in the past was resistant to Levaquin ( left AMA during last admission) Start ertapenem tenia Zosyn given in the ER Urine culture pending, blood cultures, start IV fluids with aggressive hydration Order lactic acid, consult urology 2. Leukocytosis secondary to sepsis (had a fever of 103 at home) 3. Diabetes type 2 insulin-dependent, use insulin sliding scale 4. History of opioid abuse, continue buprenorphine 5. Hypertension stable Protonix for GI prophylaxis and subcutaneous heparin for DVT prophylaxis the patient will be admitted as inpatient, expected stay [place] midnights. Full code. Time spent on this admission 40 minutes. H&P to be completed by EDDY Matthews
[2017-03-27] MEDS: *HR* Buprenorphine HCl 2 MG SUBLINGUAL TABLET SL SCH (19:52)
[2017-03-27] MEDS: LOSART PO SCH (19:52)
[2017-03-27] MEDS: Metoprolol 100 MG TABLET PO SCH (19:52)
--- NOTE | 2017-03-27 22:21 | Internal Med History&Physical ---
<Jay Matthews - Last Filed: 03/27/17 22:59> Date of Encounter: 03/27/17 Time of Encounter: 13:00 Assessment and Plan (1) Sepsis Current visit: Yes Status: Acute Patient presents with acute sepsis secondary to UTI/possible acute pyelonephritis. Patient's previous medical history shows history of Klebsiella and Escherichia coli with ESBL. Patient reports completing 14 days of Levaquin recently for Klebsiella. Patient's previous history shows Escherichia coli in the past was resistant to Levaquin. Will administer ertapenem 1000 mg IVPB daily. Urine culture ordered. Qualifiers: Sepsis type: sepsis due to unspecified organism Qualified Code(s): A41.9 - Sepsis, unspecified organism (2) Leukocytosis Current visit: Yes Status: Acute Patient presents with acute leukocytosis secondary to sepsis. On admission to ED, patient's WBC was 17.4. Patient reports fever at home of 103F. Will monitor WBC through follow-up labs. Qualifiers: Leukocytosis type: unspecified Qualified Code(s): D72.829 - Elevated white blood cell count, unspecified (3) Diabetes Current visit: Yes Status: Chronic Presents with history of chronic diabetes with insulin dependency. Will administer low-dose insulin sliding scale and hypoglycemic protocol. A1c ordered. Blood glucose monitoring before meals at bedtime. Qualifiers: Diabetes mellitus type: type 2 Diabetes mellitus complication status: without complication Diabetes mellitus penitentiary insulin use: with penitentiary use Qualified Code(s): E11.9 - Type 2 diabetes mellitus without complications ; Z79.4 - prison (current) use of insulin (4) History of opioid abuse Current visit: Yes Status: Chronic Patient presents with history of opioid abuse. We will continue buprenorphine. (5) HTN (hypertension) Current visit: Yes Status: Chronic Patient presents with history of chronic hypertension. Will monitor patient and vital signs continue patient's Cozaar and metoprolol. Qualifiers: Hypertension type: essential hypertension Qualified Code(s): I10 - Essential (primary) hypertension (6) HLD (hyperlipidemia) Current visit: Yes Status: Chronic Patient presents with history of chronic hyperlipidemia. Lipid panel ordered and will continue patient's Lipitor. Qualifiers: Hyperlipidemia type: pure hypercholesterolemia Qualified Code(s): E78.00 - Pure hypercholesterolemia, unspecified; E78.0 - Pure hypercholesterolemia (7) DVT prophylaxis Current visit: Yes Status: Acute Patient to be placed on DVT prophylaxis due to current admission protocol and current symptoms. Heparin 5000 units SQ every 8 ordered. Internal Medicine - H&P: HPI Chief complaint: Back pain/UTI Admitted From: Emergency Dept Plans for Post Hospital Care: Home History of present illness: Ms. Todd is a 46 year old female with PMH of diabetes, hepatitis, HLD, HTN, and kidney stones who presents from the ED with chief complaint of back pain and UTI. Patient states she was in hospital approximately 1 month ago when she had bilateral ureteral stents placed for kidney stones. Patient is followed by urology and was placed on Levaquin which she finished on Tuesday. Patient states Tuesday she developed fevers at home as high as 103F. She also reports dysuria, hematuria, and nausea. Patient denies chest pain, vomiting, chills, abdominal pain, changes in vision, diarrhea, dizziness, lightheadedness, presyncope, or syncope. She reports she is a current smoker smoking 1 pack per day. Patient's allergies include Levaquin, Zoloft, and Darvocet. Upon admission the ED, patient meets sepsis criteria based on pulse rate of 100 bpm, WBC 17.4, and temperature prior to coming to ED of 103F. Patient's initial U/A in ED indicated a urine culture. Information taken from patient, chart review, and previous medical records. Patient is currently hemodynamically stable and at high risk for increased infection due to sepsis criteria, current symptoms, and risk factors and will be placed as inpatient status. Time spent with patient greater than 40 minutes. Past Med Surg Social Fam HX - Past Medical History Source: patient, old records reviewed Medical history: diabetes, hepatitis, hyperlipidemia, hypertension, kidney stones, other Psychiatric history: anxiety, depression - Past Surgical History Surgical History: appendectomy, hysterectomy - Social History Smoking Status: Current every day smoker Packs per day: 1 PPD Smokeless Tobacco Status: No Alcohol use: none Drug use: opiates Current living situation: Home Activity Level: Independent ambulation Recent Out of Country Travel Within the Last 8 Weeks: No Exposure or Possible Exposure to Illness During Travel: No - Family History Father Race: Family Member Ethnicity: Non- Living Status: Age at : 69 Cause of : HD Hx Family Cardiac Disorders: Yes (HTN, HD, HLD) Hx Family Endocrine Disorder: Yes (DM) Mother Race: Family Member Ethnicity: Non- Living Status: Still Living Hx Family Cardiac Disorders: Yes (HTN) Hx Family Genitourinary Disorders: Yes (Kidney Stones) Hx Family Endocrine Disorder: Yes (DM) Sister Race: Family Member Ethnicity: Non- Living Status: Still Living Hx Family Genitourinary Disorders: Yes (Kidney Stones) Hx Family Endocrine Disorder: Yes (DM) Internal Medicine - H&P: Meds Atorvastatin [Lipitor] 40 mg PO HS 10/28/15 [History] Cholecalciferol (Vitamin D3) [Vitamin D3] 1,000 unit PO DAILY 10/28/15 [History] Gabapentin [Neurontin] 1,200 mg PO TID 10/28/15 [History] Ibuprofen [Motrin] 600 mg PO Q8H 10/28/15 [History] Losartan Potassium [Cozaar] 50 mg PO HS 10/28/15 [History] Omeprazole [PriLOSEC] 40 mg PO HS 10/28/15 [History] Tizanidine HCl 4 mg PO Q8H PRN 10/28/15 [History] Acetaminophen/Butalbital/Caffe [Fioricet] 1 tab PO DAILY PRN 06/08/16 [History] Albuterol Sulfate [Ventolin Hfa] 2 puff IH Q4H PRN 06/08/16 [History] Metoprolol [Lopressor] 100 mg PO BID 03/01/17 [History] Aspirin [Aspirin] 81 mg PO DAILY 03/27/17 [History] Buprenorphine HCl [Subutex] 8 mg SL TID 03/27/17 [History] Hyoscyamine SL [Levsin SL] 0.125 mg SL Q6H PRN 03/27/17 [History] 3 Allergy/AdvReac Type Severity Reaction Status Date / Time levofloxacin [From Levaquin] Allergy See Verified 03/27/17 10:20 Comments sertraline [From Zoloft] Allergy Swelling Verified 03/27/17 10:20 of Lip/Tongue/Throat propoxyphene AdvReac Itching Verified 03/27/17 10:20 [From Darvocet-N 100] All Systems PM: A 10-system review of systems was performed and is negative for pertinent findings except as documented above in the HPI. - Constitutional Constitutional: as per HPI, fever(s), no chills, no night sweats - EENT Eyes: no change in vision, no discharge, no pain, no photophobia Ears: no ear discharge, no ear pain, no tinnitus Nose, mouth and throat: no dysphagia, no nasal discharge, no neck pain, no sore throat - Breasts Breasts: as per HPI - Cardiovascular Cardiovascular ROS IM: no chest pain, no diaphoresis, no dyspnea, no lightheadedness, no palpitations, no syncope - Respiratory Respiratory: no cough, no dyspnea, no wheezing, no excessive phlegm production - Gastrointestinal Gastrointestinal: as per HPI, nausea - Genitourinary Genitourinary: as per HPI, difficulty urinating, dysuria, hematuria Menstruation: as per HPI - Musculoskeletal Musculoskeletal ROS IM: no numbness, no tingling - Integumentary Integumentary IM: no rash, no unusual bruising - Neurological Neurological ROS: no confusion, no convulsions, no focal weakness, no numbness, no tingling, no tremor(s) - Psychiatric Psychiatric: as per HPI - Endocrine Endocrine IM: as per HPI - Hematologic/Lymphatic Hematologic/Lymphatic: no easy bruising - Allergic/Immunologic Allergic/Immunologic: as per HPI - Constitutional Vitals: Temp Pulse Resp BP Pulse Ox 99.3 F 78 16 119/68 94 03/27/17 18:53 03/27/17 18:53 03/27/17 18:53 03/27/17 18:53 03/27/17 18:53 General appearance: Present: cooperative, mild distress, A&O X 3, pleasant, obese, answers questions appropriately - Head Head exam: Present: atraumatic, normocephalic - Eye Eye exam: Present: PERRL, conjuntiva pink, sclera anicteric Pupils: Present: PERRL - ENT ENT exam: Present: normal exam, normal external ear exam - Neck Neck exam general surgery: Present: supple, trachea midline. Absent: lymphadenopathy - Respiratory Respiratory exam: Present: CTAB. Absent: accessory muscle use, rales, rhonchi, wheezes - Cardiovascular Cardiovascular exam: Present: RRR, +S1, +S2. Absent: diastolic murmur, gallop, rubs, systolic murmur - GI/Abdominal GI/Abdominal exam: Present: normal bowel sounds, soft, no peritoneal signs. Absent: distended, tenderness - Rectal Rectal exam: Present: deferred - Additional comments: exam deferred. - Extremities Exam Extremities exam: Present: warm, radial pulses palpable and symmetrical. Absent : calf tenderness, cyanotic, pedal edema - Back Exam Back exam: Present: normal inspection - Neurological Exam Neurological exam: Present: CN II-XII intact, oriented X3, no focal deficits. Absent: pronater drift, facial droop, speech deficit - Psychiatric Psychiatric exam: Present: normal affect, normal mood - Skin Skin exam: Present: dry, intact Internal Med - H&P Results - Labs CBC & Chem 7: 03/27/17 10:51 03/27/17 10:51 <Tai Ferro H - Last Filed: 03/28/17 15:54> Date of Encounter: 03/28/17 Internal Medicine - H&P: HPI History of present illness: Ms. Todd is a 46 year old female All Systems PM: A 10-system review of systems was performed and is negative for pertinent findings except as documented above in the HPI. - Constitutional Vitals: Temp Pulse Resp BP Pulse Ox 98.3 F 66 18 102/57 94 03/28/17 15:16 03/28/17 15:16 03/28/17 15:16 03/28/17 15:16 03/28/17 15:16 Internal Med - H&P Results - Labs CBC & Chem 7: 03/28/17 03:23 03/28/17 03:23 Labs: Short CBC 03/28/17 Range/Units 03:23 WBC 20.0 H (4.3-11.1) K/mcL Hgb 11.9 (11.5-15.4) g/dL Hct 36.5 (35.3-44.9) % Plt Count 264 (140-400) K/mcL Neutrophils # 16.4 H (1.6-8.9) K/mcL BMP 03/28/17 03:23 Sodium 138 Potassium 3.9 Chloride 101 Carbon Dioxide 29 BUN 12 Creatinine 1.03 Glucose 265 H Calcium 9.5 Liver Function 03/28/17 Range/Units 03:23 Total Bilirubin 0.5 (0.2-1.2) mg/dL Direct Bilirubin 0.3 (0.0-0.5) mg/dL AST 16 (5-34) Units/L ALT 16 (0-55) Units/L Alkaline Phosphatase 86 (38-126) Units/L Albumin 2.6 L (3.5-5.0) g/dL - Attending Attestation 1. Sepsis secondary to urinary tract infection/possible acute pyelonephritis with history of Klebsiella and Escherichia coli both ESBL Completed 14 days of Levaquin recently treated Klebsiella, Escherichia coli in the past was resistant to Levaquin ( left AMA during last admission) Start ertapenem tenia Zosyn given in the ER Urine culture pending, blood cultures, start IV fluids with aggressive hydration Order lactic acid, consult urology 2. Leukocytosis secondary to sepsis (had a fever of 103 at home) 3. Diabetes type 2 insulin-dependent, use insulin sliding scale 4. History of opioid abuse, continue buprenorphine 5. Hypertension stable Protonix for GI prophylaxis and subcutaneous heparin for DVT prophylaxis the patient will be admitted as inpatient, expected stay [place] midnights. Full code. Time spent on this admission 40 minutes.
[2017-03-28] MEDS: Ibuprofen 600 MG TABLET PO SCH ×4 (00:16→20:23)
[2017-03-28] MEDS: 0.9 % Sodium Chloride 1,000 ML IVC SCH ×4 (00:16→16:13)
[2017-03-28] MEDS: *HR* Heparin 5,000 UNIT/ML VIAL SQ SCH ×3 (00:50→16:08)
[2017-03-28] MEDS: *HR* Morphine 2 MG/ML SYRINGE IVP PRN ×6 (02:07→23:00)
[2017-03-28 03:32] LABS: Basophils % 0.2 %; Eosinophils # 0.3 K/mcL (0.0-0.6); Eosinophils % 1.3 %; Hematocrit 36.5 % (35.3-44.9); Hemoglobin 11.9 g/dL (11.5-15.4); Lymphocytes # 1.3 K/mcL (0.6-4.6); Lymphocytes % 6.5 %; Mean Corpuscular HGB Conc 32.6 g/dL (31.6-35.5); Mean Corpuscular Volume 95.1 fL (83.0-100.0); Mean Platelet Volume 9.8 fL (9.4-12.4); Monocytes # 1.8 K/mcL (0.0-1.3); Monocytes % 8.8 %; Neutrophils # 16.4 K/mcL (1.6-8.9); Platelet Count 264 K/mcL (140-400); Red Blood Count 3.84 M/mcL (3.82-4.97); Red Cell Distribution Width 12.7 % (11.5-14.5); Segmented Neutrophils % 82.2 %
[2017-03-28 03:37] LABS: INR 1.3; Prothrombin Time 13.6 Seconds (9.4-12.1)
[2017-03-28 03:39] LABS: Activated Partial Thrombo Time 29.3 Seconds (26.0-36.0)
[2017-03-28] MEDS ORDERED: Acetaminophen 325 MG TABLET PO PRN (03:44)
[2017-03-28 03:49] LABS: Alanine Aminotransferase 16 Units/L (0-55); Albumin 2.6 g/dL (3.5-5.0); Albumin/Globulin Ratio 0.6 (1.1-2.2); Alkaline Phosphatase 86 Units/L (38-126); Aspartate Amino Transferase 16 Units/L (5-34); BUN/Creatinine Ratio 12 (6-26); Bilirubin,Direct 0.3 mg/dL (0.0-0.5); Bilirubin,Indirect 0.2 mg/dL (0.0-1.2); Bilirubin,Total 0.5 mg/dL (0.2-1.2); Blood Urea Nitrogen 12 mg/dL (7-20); Calcium 9.5 mg/dL (8.6-10.8); Carbon Dioxide 29 mEq/L (19-29); Chloride 101 mEq/L (98-109); Chol/HDL Ratio 5.2 (0-4.9); Cholesterol 93 mg/dL (< 200); Globulin 4.7 g/dL (2.4-3.5); Glucose 265 mg/dL (70-99); HDL Cholesterol 18 mg/dL (40-59); LDL Cholesterol,Calculated 54 mg/dL (0-99); Magnesium 1.8 mg/dL (1.6-2.6); Osmolality,Calculated 295 (280-300); Potassium 3.9 mEq/L (3.5-4.5); Sodium 138 mEq/L (136-145); Total Protein 7.3 g/dL (6.0-8.3); Triglycerides 103 mg/dL (< 150); eGFR For African Americans > 60 (> 60); eGFR For Non-African Americans 58 (> 60)
[2017-03-28] MEDS: Gabapentin 400 MG CAPSULE PO SCH ×3 (08:30→20:22)
[2017-03-28] MEDS: Ertapenem 1,000 MG in 0.9 % Sodium Chloride Mini Bag 100 ML IVPB SCH (08:30)
[2017-03-28] MEDS: Metoprolol 100 MG TABLET PO SCH ×2 (08:31→20:23)
[2017-03-28] MEDS: Cholecalciferol (D-3) 1,000 UNIT TABLET PO SCH (08:31)
[2017-03-28] MEDS: Pantoprazole 40 MG VIAL IVP SCH (08:31)
[2017-03-28] MEDS: *HR* Buprenorphine HCl 2 MG SUBLINGUAL TABLET SL SCH ×3 (08:31→20:22)
[2017-03-28] MEDS: Aspirin 81 MG TAB.CHEW PO SCH (08:31)
[2017-03-28] MEDS: Insulin LISPRO 300 UNITS/3 ML VIAL SQ SCH ×4 (08:35→20:19)
--- NOTE | 2017-03-28 16:05 | Internal Med Progress Note ---
Date of Encounter: 03/28/17 Time of Encounter: 16:02 - Assessment and plan (1) Sepsis Current Visit: Yes Status: Acute Assessment and plan: Sepsis secondary to urinary tract infection/possible acute pyelonephritis with history of Klebsiella and Escherichia coli both ESBL Completed 14 days of Levaquin recently treated Klebsiella, Escherichia coli in the past was resistant to Levaquin ( left AMA during last admission) Continue ertapenem day 2 Urine culture growing Klebsiella ESBL sensitive only to carbapenems and gentamicin IV fluids consult urology to remove ureteral stents Qualifiers: Sepsis type: sepsis due to unspecified organism Qualified Code(s): A41.9 - Sepsis, unspecified organism (2) Leukocytosis Current Visit: Yes Status: Acute Qualifiers: Leukocytosis type: unspecified Qualified Code(s): D72.829 - Elevated white blood cell count, unspecified (3) Pyelonephritis Current Visit: Yes Status: Acute (4) Diabetes Current Visit: Yes Status: Chronic Assessment and plan: Continue insulin sliding scale Qualifiers: Diabetes mellitus type: type 2 Diabetes mellitus complication status: without complication Diabetes mellitus snf insulin use: with intermediate project manager use Qualified Code(s): E11.9 - Type 2 diabetes mellitus without complications ; Z79.4 - local company intermodal truck driver (current) use of insulin (5) HLD (hyperlipidemia) Current Visit: Yes Status: Chronic Qualifiers: Hyperlipidemia type: pure hypercholesterolemia Qualified Code(s): E78.00 - Pure hypercholesterolemia, unspecified; E78.0 - Pure hypercholesterolemia (6) HTN (hypertension) Current Visit: Yes Status: Chronic Assessment and plan: Stable Qualifiers: Hypertension type: essential hypertension Qualified Code(s): I10 - Essential (primary) hypertension (7) History of opioid abuse Current Visit: Yes Status: Chronic Assessment and plan: Continue buprenorphine - Subjective Interval history: Feeling better, had a fever 100.8 this morning, denies any chest pain or shortness of breath, complains of abdominal pain mainly on the right side, mild dysuria, no diarrhea - Constitutional Vitals: Temp Pulse Resp BP Pulse Ox 98.3 F 66 18 102/57 94 03/28/17 15:16 03/28/17 15:16 03/28/17 15:16 03/28/17 15:16 03/28/17 15:16 General appearance: Present: cooperative, mild distress, A&O X 3, pleasant, obese, answers questions appropriately - Head Head exam: Present: atraumatic, normocephalic - Eye Eye exam: Present: PERRL, conjuntiva pink, sclera anicteric Pupils: Present: PERRL - Neck Neck exam general surgery: Present: supple, trachea midline. Absent: lymphadenopathy - Respiratory Respiratory exam: Present: CTAB. Absent: accessory muscle use, rales, rhonchi, wheezes - Cardiovascular Cardiovascular exam: Present: RRR, +S1, +S2. Absent: diastolic murmur, gallop, rubs, systolic murmur - GI/Abdominal GI/Abdominal exam: Present: distended, normal bowel sounds, soft, tenderness ( Right flank tenderness), no peritoneal signs - Extremities Exam Extremities exam: Present: warm, radial pulses palpable and symmetrical. Absent : calf tenderness, cyanotic, pedal edema - Neurological Exam Neurological exam: Present: CN II-XII intact, oriented X3, no focal deficits. Absent: pronater drift, facial droop, speech deficit - Skin Skin exam: Present: dry, intact Internal Medicine: Result - Labs CBC & Chem 7: 03/28/17 03:23 03/28/17 03:23 Labs: Short CBC 03/28/17 Range/Units 03:23 WBC 20.0 H (4.3-11.1) K/mcL Hgb 11.9 (11.5-15.4) g/dL Hct 36.5 (35.3-44.9) % Plt Count 264 (140-400) K/mcL Neutrophils # 16.4 H (1.6-8.9) K/mcL BMP 03/28/17 03:23 Sodium 138 Potassium 3.9 Chloride 101 Carbon Dioxide 29 BUN 12 Creatinine 1.03 Glucose 265 H Calcium 9.5 Liver Function 03/28/17 Range/Units 03:23 Total Bilirubin 0.5 (0.2-1.2) mg/dL Direct Bilirubin 0.3 (0.0-0.5) mg/dL AST 16 (5-34) Units/L ALT 16 (0-55) Units/L Alkaline Phosphatase 86 (38-126) Units/L Albumin 2.6 L (3.5-5.0) g/dL - ABG Interpretation ABG results: PT/INR, D-dimer PT 13.6 Seconds (9.4-12.1) H 03/28/17 03:23 Consult Discharge Plan - Plan Referrals: Kaylee Brady CNP [Primary Care Provider] -
[2017-03-28] MEDS ORDERED: Nicotine 2 MG GUM BC PRN (16:27)
[2017-03-28] MEDS: LOSART PO SCH (20:23)
[2017-03-29] MEDS: *HR* Heparin 5,000 UNIT/ML VIAL SQ SCH ×3 (00:17→16:31)
[2017-03-29] MEDS: 0.9 % Sodium Chloride 1,000 ML IVC SCH ×2 (02:15→12:25)
[2017-03-29] MEDS: *HR* Morphine 2 MG/ML SYRINGE IVP PRN ×5 (02:19→20:46)
[2017-03-29] MEDS: Ibuprofen 600 MG TABLET PO SCH ×3 (05:19→21:53)
[2017-03-29 05:44] LABS: Hematocrit 33.3 % (35.3-44.9); Hemoglobin 10.7 g/dL (11.5-15.4); Mean Corpuscular HGB Conc 32.1 g/dL (31.6-35.5); Mean Corpuscular Hemoglobin 30.5 pg (28.0-33.3); Mean Corpuscular Volume 94.9 fL (83.0-100.0); Mean Platelet Volume 10.6 fL (9.4-12.4); Platelet Count 263 K/mcL (140-400); Red Blood Count 3.51 M/mcL (3.82-4.97); Red Cell Distribution Width 12.5 % (11.5-14.5)
[2017-03-29 05:57] LABS: BUN/Creatinine Ratio 10 (6-26); Blood Urea Nitrogen 8 mg/dL (7-20); Calcium 9.1 mg/dL (8.6-10.8); Carbon Dioxide 26 mEq/L (19-29); Chloride 108 mEq/L (98-109); Glucose 225 mg/dL (70-99); Osmolality,Calculated 295 (280-300); Potassium 3.6 mEq/L (3.5-4.5); Sodium 140 mEq/L (136-145); eGFR For African Americans > 60 (> 60); eGFR For Non-African Americans > 60 (> 60)
--- NOTE | 2017-03-29 07:38 | Urology - Consult Note ---
Date of Encounter: 03/29/17 Time of Encounter: 07:36 - Assessment and Plan (1) Leukocytosis Current Visit: Yes Status: Acute Assessment and plan: Patient will need at least 2 weeks of IV antibiotics. Qualifiers: Leukocytosis type: unspecified Qualified Code(s): D72.829 - Elevated white blood cell count, unspecified (2) Ureteral stone Current Visit: No Status: Acute Assessment and plan: Patient surgery for this will be canceled. I will attempt to reschedule the patient in 2-3 weeks. Urology CN:HPI Consult date: 03/29/17 Reason for consult Urology: Other (uti) Requesting physician: Tai Ferro History of present illness: Nerissa is a 46-year-old female well-known to me. She underwent recent bilateral stent placement. She was scheduled this for stone extraction but is now admitted secondary to urinary tract infection with leukocytosis. UTI reveals aegpm-[id number] organism. Patient states that she does not feel well at this time. Past Med Surg Social Fam HX - Past Medical History Medical history: diabetes, hepatitis, hyperlipidemia, hypertension, kidney stones, other Psychiatric history: anxiety, depression - Past Surgical History Surgical History: appendectomy, hysterectomy - Social History Smoking Status: Current every day smoker Packs per day: 1 PPD Smokeless Tobacco Status: No Alcohol use: none Drug use: opiates - Family History Father Race: Family Member Ethnicity: Non- Living Status: Age at : 69 Cause of : HD Hx Family Cardiac Disorders: Yes (HTN, HD, HLD) Hx Family Endocrine Disorder: Yes (DM) Mother Race: Family Member Ethnicity: Non- Living Status: Still Living Hx Family Cardiac Disorders: Yes (HTN) Hx Family Genitourinary Disorders: Yes (Kidney Stones) Hx Family Endocrine Disorder: Yes (DM) Sister Race: Family Member Ethnicity: Non- Living Status: Still Living Hx Family Genitourinary Disorders: Yes (Kidney Stones) Hx Family Endocrine Disorder: Yes (DM) Medications and Allergies Atorvastatin [Lipitor] 40 mg PO HS 10/28/15 [History] Cholecalciferol (Vitamin D3) [Vitamin D3] 1,000 unit PO DAILY 10/28/15 [History] Gabapentin [Neurontin] 1,200 mg PO TID 10/28/15 [History] Ibuprofen [Motrin] 600 mg PO Q8H 10/28/15 [History] Losartan Potassium [Cozaar] 50 mg PO HS 10/28/15 [History] Omeprazole [PriLOSEC] 40 mg PO HS 10/28/15 [History] Tizanidine HCl 4 mg PO Q8H PRN 10/28/15 [History] Acetaminophen/Butalbital/Caffe [Fioricet] 1 tab PO DAILY PRN 06/08/16 [History] Albuterol Sulfate [Ventolin Hfa] 2 puff IH Q4H PRN 06/08/16 [History] Metoprolol [Lopressor] 100 mg PO BID 03/01/17 [History] Aspirin [Aspirin] 81 mg PO DAILY 03/27/17 [History] Buprenorphine HCl [Subutex] 8 mg SL TID 03/27/17 [History] Hyoscyamine SL [Levsin SL] 0.125 mg SL Q6H PRN 03/27/17 [History] 3 Allergy/AdvReac Type Severity Reaction Status Date / Time levofloxacin [From Levaquin] Allergy See Verified 03/27/17 10:20 Comments sertraline [From Zoloft] Allergy Swelling Verified 03/27/17 10:20 of Lip/Tongue/Throat propoxyphene AdvReac Itching Verified 03/27/17 10:20 [From Darvocet-N 100] Review of Systems - Constitutional fever(s) - EENT Nose, mouth and throat: no dizziness - Cardiovascular no chest pain - Respiratory no cough - Musculoskeletal no back pain - Integumentary no erythema Exam Initial Vital Signs Temp Pulse Resp BP Pulse Ox 99.3 F 100 18 152/92 96 03/27/17 10:17 03/27/17 10:17 03/27/17 10:17 03/27/17 10:17 03/27/17 10:17 - General physical appearance Present: well developed - Neck Present: no masses - Respiratory Present: normal respiratory effort - Cardiovascular Cardiovascular exam IM: RRR - Abdomen Abdomen: Present: soft Urology Results - Labs 03/29/17 04:33 03/29/17 04:33 Abnormal lab results WBC 13.4 K/mcL (4.3-11.1) H 03/29/17 04:33 RBC 3.51 M/mcL (3.82-4.97) L 03/29/17 04:33 Hgb 10.7 g/dL (11.5-15.4) L 03/29/17 04:33 Hct 33.3 % (35.3-44.9) L 03/29/17 04:33 Neutrophils # 16.4 K/mcL (1.6-8.9) H 03/28/17 03:23 Monocytes # 1.8 K/mcL (0.0-1.3) H 03/28/17 03:23 PT 13.6 Seconds (9.4-12.1) H 03/28/17 03:23 Glucose 225 mg/dL (70-99) H 03/29/17 04:33 POC Glucose 299 (58-89) H 03/29/17 07:31 Hemoglobin A1c 7.0 % (-5.6) H 03/28/17 03:23 Albumin 2.6 g/dL (3.5-5.0) L 03/28/17 03:23 Globulin 4.7 g/dL (2.4-3.5) H 03/28/17 03:23 Albumin/Globulin Ratio 0.6 (1.1-2.2) L 03/28/17 03:23 HDL Cholesterol 18 mg/dL (40-59) L 03/28/17 03:23 Cholesterol/HDL Ratio 5.2 (0-4.9) H 03/28/17 03:23 Urine Clarity Cloudy (Clear) A 03/27/17 10:35 Urine Protein 100 mg/dL (Neg-Trace) H 03/27/17 10:35 Urine Blood Large (Negative) H 03/27/17 10:35 Ur Leukocyte Esterase Large (Negative) H 03/27/17 10:35 Urine Microscopic RBC 30-50 per hpf (0-3) H 03/27/17 10:35 Urine Microscopic WBC TNTC per hpf (0-3) H 03/27/17 10:35 Urine Bacteria Many per hpf (None-Few) H 03/27/17 10:35 Ur Culture Indicated? YES (NO) A 03/27/17 10:35 Diabetes panel 03/29/17 Range/Units 04:33 Sodium 140 (136-145) mEq/L Potassium 3.6 (3.5-4.5) mEq/L Chloride 108 (98-109) mEq/L Carbon Dioxide 26 (19-29) mEq/L BUN 8 (7-20) mg/dL Creatinine 0.79 (0.57-1.11) mg/dL Glucose 225 H (70-99) mg/dL Calcium 9.1 (8.6-10.8) mg/dL Calcium panel 03/29/17 Range/Units 04:33 Calcium 9.1 (8.6-10.8) mg/dL Pituitary panel 03/29/17 Range/Units 04:33 Sodium 140 (136-145) mEq/L Potassium 3.6 (3.5-4.5) mEq/L Chloride 108 (98-109) mEq/L Carbon Dioxide 26 (19-29) mEq/L BUN 8 (7-20) mg/dL Creatinine 0.79 (0.57-1.11) mg/dL Glucose 225 H (70-99) mg/dL Calcium 9.1 (8.6-10.8) mg/dL Adrenal panel 03/29/17 Range/Units 04:33 Sodium 140 (136-145) mEq/L Potassium 3.6 (3.5-4.5) mEq/L Chloride 108 (98-109) mEq/L Carbon Dioxide 26 (19-29) mEq/L BUN 8 (7-20) mg/dL Creatinine 0.79 (0.57-1.11) mg/dL Glucose 225 H (70-99) mg/dL Calcium 9.1 (8.6-10.8) mg/dL All other labs normal. Consult Discharge Plan - Plan Referrals: Kaylee Brady, TAWANA [Primary Care Provider] -
[2017-03-29] MEDS: Insulin LISPRO 300 UNITS/3 ML VIAL SQ SCH ×4 (10:24→21:53)
[2017-03-29] MEDS: Aspirin 81 MG TAB.CHEW PO SCH (10:26)
[2017-03-29] MEDS: Ertapenem 1,000 MG in 0.9 % Sodium Chloride Mini Bag 100 ML IVPB SCH (10:26)
[2017-03-29] MEDS: Cholecalciferol (D-3) 1,000 UNIT TABLET PO SCH (10:27)
[2017-03-29] MEDS: Gabapentin 400 MG CAPSULE PO SCH ×3 (10:27→20:30)
[2017-03-29] MEDS: *HR* Buprenorphine HCl 2 MG SUBLINGUAL TABLET SL SCH ×3 (10:27→20:32)
[2017-03-29] MEDS: Pantoprazole 40 MG VIAL IVP SCH (10:27)
[2017-03-29] MEDS: Metoprolol 100 MG TABLET PO SCH ×2 (10:27→20:30)
--- NOTE | 2017-03-29 12:43 | Discharge Summary ---
Date of Encounter: 03/29/17 Time of Encounter: 12:41 - Discharge Diagnosis (1) Sepsis Priority: Primary Status: Acute Comments: Due to Klebsiella pneumoniae MDR Qualifiers: Sepsis type: sepsis due to unspecified organism Qualified Code(s): A41.9 - Sepsis, unspecified organism (2) Pyelonephritis Priority: Secondary Status: Acute (3) Diabetes Priority: Secondary Status: Chronic Qualifiers: Diabetes mellitus type: type 2 Diabetes mellitus complication status: without complication Diabetes mellitus long term care phlebotomist insulin use: with long term care phlebotomist use Qualified Code(s): E11.9 - Type 2 diabetes mellitus without complications ; Z79.4 - long-term (current) use of insulin (4) History of opioid abuse Priority: Secondary Status: Chronic (5) HLD (hyperlipidemia) Priority: Secondary Status: Chronic Qualifiers: Hyperlipidemia type: pure hypercholesterolemia Qualified Code(s): E78.00 - Pure hypercholesterolemia, unspecified; E78.0 - Pure hypercholesterolemia (6) HTN (hypertension) Priority: Secondary Status: Chronic Qualifiers: Hypertension type: essential hypertension Qualified Code(s): I10 - Essential (primary) hypertension (7) Leukocytosis Priority: Secondary Status: Resolved Qualifiers: Leukocytosis type: unspecified Qualified Code(s): D72.829 - Elevated white blood cell count, unspecified - Discharge Medications Prescriptions: Ertapenem [INVanz] 1,000 mg IVPB DAILY #12 vial metFORMIN [Glucophage] 500 mg PO BIDWM #60 tablet Home Medications: Atorvastatin [Lipitor] 40 mg PO HS 10/28/15 [History] Cholecalciferol (Vitamin D3) [Vitamin D3] 1,000 unit PO DAILY 10/28/15 [History] Gabapentin [Neurontin] 1,200 mg PO TID 10/28/15 [History] Losartan Potassium [Cozaar] 50 mg PO HS 10/28/15 [History] Omeprazole [PriLOSEC] 40 mg PO HS 10/28/15 [History] Tizanidine HCl 4 mg PO Q8H PRN 10/28/15 [History] Acetaminophen/Butalbital/Caffe [Fioricet] 1 tab PO DAILY PRN 06/08/16 [History] Albuterol Sulfate [Ventolin Hfa] 2 puff IH Q4H PRN 06/08/16 [History] Metoprolol [Lopressor] 100 mg PO BID 03/01/17 [History] Aspirin 81 mg PO DAILY 03/27/17 [History] Buprenorphine HCl [Subutex] 8 mg SL TID 03/27/17 [History] Hyoscyamine SL [Levsin Sl] 0.125 mg SL Q6H PRN 03/27/17 [History] Ertapenem [INVanz] 1,000 mg IVPB DAILY #12 vial 03/29/17 [Rx] metFORMIN [Glucophage] 500 mg PO BIDWM #60 tablet 03/30/17 [Rx] Allergies/Adverse Reactions: 3 Allergy/AdvReac Type Severity Reaction Status Date / Time levofloxacin [From Levaquin] Allergy See Verified 03/27/17 10:20 Comments sertraline [From Zoloft] Allergy Swelling Verified 03/27/17 10:20 of Lip/Tongue/Throat propoxyphene AdvReac Itching Verified 03/27/17 10:20 [From Darvocet-N 100] Date of admission: 03/27/17 14:18 Primary care physician: Kaylee Brady CNP Consults: 03/28/17 15:55 Consult to Urology [CONS] Routine Consulting Provider: Urology Tanja Reason for Consult: esbl UTI infection , B/L ureteral stents Call Completed: No 03/29/17 08:47 Consult to PICC team [Consult to Invasive Line Access Team] [CONS] Stat Reason for Consult: EPIV placement Line Type: EPIV PICC line indications: intermediate accountant Med/Antibiotic 03/29/17 08:48 Consult to Snubber [CONS] Routine Reason for SW Consult: DIscharge planning for IV antibiotics Discharging clinician: Lata Dukes Anticipated date of discharge: 03/30/17 - Patient Status Disposition: Home, Self-Care Condition: Good Functional capacity at discharge: independent ambulation Overall status at discharge: patient is progressing back to baseline - Discharge Instructions Instructions: Urinary Tract Infection in Women (DC), Sepsis (DC) Follow Up With: Kaylee Brady CNP [Primary Care Provider] - 04/07/17 1:00 pm Deacon Brandon MD [Partnered Physician] - 04/07/17 8:15 am - Diet and Activity Activity: increase activity as tolerated Diet: diabetic diet, low fat, low cholesterol, low salt diet Hospital course: Ms. Todd is a 46 year old female patient with history of diabetes mellitus type 2, hepatitis, kidney stones presented to the ER with complaints of back pain and urinary tract infection. She has bilateral ureteral stents placed for kidney stones about one month back and was seen by urology as outpatient in the interim. During that admission she was diagnosed with sepsis with Klebsiella pneumoniae that was extended spectrum beta lactamase positive. She was recommended IV antibiotics but had left the hospital AGAINST MEDICAL ADVICE. This time again her urine cultures have been positive for Klebsiella pneumoniae multidrug resistant organism that is sensitive to ertapenem. As such, she has been advised to take intravenous antibiotics for 2 weeks with infectious disease follow-up to due to recurrent multidrug resistant bacterial infections. Given her acute infection, urology has postponed surgery for 2-3 weeks for ureteral stones. Recommended 2 weeks of IV antibiotics. She will be discharged from the hospital once this was arranged. Her leukocytosis has sepsis are resolving. Patient is also diabetic with an A1c of 7%. She is not on any home medications and I am starting her on treatment for this with metformin. - Time Spent with Patient Total time spent providing and/or coordinating discharge services: Greater than 30 minutes (35 min) - Constitutional Vitals: Temp Pulse Resp BP Pulse Ox 98.5 F 58 16 120/72 92 03/29/17 11:26 03/29/17 11:26 03/29/17 11:26 03/29/17 11:26 03/29/17 11:26 General appearance: Present: cooperative, mild distress, A&O X 3, pleasant, obese, answers questions appropriately - Respiratory Respiratory exam: Present: CTAB. Absent: accessory muscle use, rales, rhonchi, wheezes - Cardiovascular Cardiovascular exam: Present: RRR, +S1, +S2. Absent: diastolic murmur, gallop, rubs, systolic murmur - GI/Abdominal GI/Abdominal exam: Present: normal bowel sounds, soft, no peritoneal signs. Absent: distended, tenderness - Extremities Exam Extremities exam: Present: warm, radial pulses palpable and symmetrical. Absent : calf tenderness, cyanotic, pedal edema - Neurological Exam Neurological exam: Present: alert, CN II-XII intact, oriented X3, no focal deficits. Absent: facial droop, speech deficit
[2017-03-29] MEDS: LOSART PO SCH (20:31)
[2017-03-30] MEDS: *HR* Heparin 5,000 UNIT/ML VIAL SQ SCH ×3 (00:15→16:34)
[2017-03-30] MEDS: 0.9 % Sodium Chloride 1,000 ML IVC SCH (00:20)
[2017-03-30] MEDS: *HR* Morphine 2 MG/ML SYRINGE IVP PRN ×4 (04:08→16:35)
[2017-03-30 04:09] LABS: Basophils % 0.2 %; Eosinophils # 0.4 K/mcL (0.0-0.6); Eosinophils % 3.8 %; Hematocrit 30.8 % (35.3-44.9); Hemoglobin 10.1 g/dL (11.5-15.4); Immature Granulocytes % 0.5 % (0-4); Immature Platelets 3.6 % (1.1-6.1); Lymphocytes # 1.6 K/mcL (0.6-4.6); Lymphocytes % 15.7 %; Mean Corpuscular HGB Conc 32.8 g/dL (31.6-35.5); Mean Corpuscular Hemoglobin 30.6 pg (28.0-33.3); Mean Corpuscular Volume 93.3 fL (83.0-100.0); Mean Platelet Volume 9.9 fL (9.4-12.4); Monocytes # 0.7 K/mcL (0.0-1.3); Neutrophils # 7.6 K/mcL (1.6-8.9); Platelet Count 293 K/mcL (140-400); Red Cell Distribution Width 12.4 % (11.5-14.5); Segmented Neutrophils % 72.8 %
[2017-03-30] MEDS: Ibuprofen 600 MG TABLET PO SCH ×2 (06:05→16:34)
[2017-03-30] MEDS: Aspirin 81 MG TAB.CHEW PO SCH (07:32)
[2017-03-30] MEDS: *HR* Buprenorphine HCl 2 MG SUBLINGUAL TABLET SL SCH ×2 (07:32→16:35)
[2017-03-30] MEDS: Gabapentin 400 MG CAPSULE PO SCH ×2 (07:32→16:34)
[2017-03-30] MEDS: Cholecalciferol (D-3) 1,000 UNIT TABLET PO SCH (07:32)
[2017-03-30] MEDS: Metoprolol 100 MG TABLET PO SCH (07:32)
[2017-03-30] MEDS: Pantoprazole 40 MG VIAL IVP SCH (07:33)
[2017-03-30] MEDS: Ertapenem 1,000 MG in 0.9 % Sodium Chloride Mini Bag 100 ML IVPB SCH (07:34)
[2017-03-30] MEDS: Insulin LISPRO 300 UNITS/3 ML VIAL SQ SCH ×3 (07:42→16:35)
--- NOTE | 2017-03-30 13:11 | Internal Med Progress Note ---
Date of Encounter: 03/30/17 Time of Encounter: 11:45 - Assessment and plan (1) Sepsis Current Visit: Yes Status: Acute Assessment and plan: With Klebsiella pneumonia and multidrug resistant organism. From acute pyelonephritis. Continue ertapenem for a total duration of 2 weeks. Awaiting home IV antibiotic arrangements. 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 Sepsis is resolving. Leukocytosis has resolved Qualifiers: Sepsis type: sepsis due to unspecified organism Qualified Code(s): A41.9 - Sepsis, unspecified organism (2) Pyelonephritis Current Visit: Yes Status: Acute Assessment and plan: Continue ertapenem as described above (3) Diabetes Current Visit: Yes Status: Chronic Assessment and plan: Blood sugars are elevated today. We will increase insulin regimen Qualifiers: Diabetes mellitus type: type 2 Diabetes mellitus complication status: without complication Diabetes mellitus nursing home insulin use: with terminal gauger supervisor use Qualified Code(s): E11.9 - Type 2 diabetes mellitus without complications ; Z79.4 - longterm (current) use of insulin (4) History of opioid abuse Current Visit: Yes Status: Chronic Assessment and plan: On Subutex (5) HLD (hyperlipidemia) Current Visit: Yes Status: Chronic Assessment and plan: Continue Lipitor Qualifiers: Hyperlipidemia type: pure hypercholesterolemia Qualified Code(s): E78.00 - Pure hypercholesterolemia, unspecified; E78.0 - Pure hypercholesterolemia (6) HTN (hypertension) Current Visit: Yes Status: Chronic Assessment and plan: Blood pressure is well controlled. No changes at this time. Qualifiers: Hypertension type: essential hypertension Qualified Code(s): I10 - Essential (primary) hypertension (7) Leukocytosis Current Visit: Yes Status: Resolved Qualifiers: Leukocytosis type: unspecified Qualified Code(s): D72.829 - Elevated white blood cell count, unspecified - Subjective Interval history: Patient is feeling better today. Denies any new complaints at this time. No fever or chills reported. No dysuria - Constitutional Vitals: Temp Pulse Resp BP Pulse Ox 98.1 F 65 16 105/67 94 03/30/17 10:53 03/30/17 10:53 03/30/17 10:53 03/30/17 10:53 03/30/17 10:53 General appearance: Present: cooperative, A&O X 3, pleasant, no acute distress, obese, answers questions appropriately - Neck Neck exam general surgery: Present: supple, trachea midline. Absent: lymphadenopathy - Respiratory Respiratory exam: Present: CTAB. Absent: accessory muscle use, rales, rhonchi, wheezes - Cardiovascular Cardiovascular exam: Present: RRR, +S1, +S2. Absent: diastolic murmur, gallop, rubs, systolic murmur - GI/Abdominal GI/Abdominal exam: Present: normal bowel sounds, soft, no peritoneal signs. Absent: distended, tenderness - Neurological Exam Neurological exam: Present: CN II-XII intact, oriented X3, no focal deficits, strengths equal and symetr throughout. Absent: facial droop, speech deficit - Skin Skin exam: Present: dry, intact Internal Medicine: Result - Labs CBC & Chem 7: 03/30/17 04:05 03/29/17 04:33 Labs: Short CBC 03/30/17 Range/Units 04:05 WBC 10.5 (4.3-11.1) K/mcL Hgb 10.1 L (11.5-15.4) g/dL Hct 30.8 L (35.3-44.9) % Plt Count 293 (140-400) K/mcL Neutrophils # 7.6 (1.6-8.9) K/mcL - ABG Interpretation ABG results: PT/INR, D-dimer PT 13.6 Seconds (9.4-12.1) H 03/28/17 03:23 Consult Discharge Plan - Plan Instructions: Urinary Tract Infection in Women (DC), Sepsis (DC) Referrals: Kaylee Brady CNP [Primary Care Provider] - 04/07/17 1:00 pm Deacon Brandon MD [Partnered Physician] - 04/07/17 8:15 am Prescriptions: Ertapenem [INVanz] 1,000 mg IVPB DAILY #12 vial metFORMIN [Glucophage] 500 mg PO BIDWM #60 tablet
[2017-03-30 18:27] VITALS: BP 124/58
== END 2017-03-30 17:51 | disposition home or self-care (01) | DRG 720 ==
LOC: 3BNU 10:15 → EMEROO 10:15 → 3BNU 13:54 → SUATTDRO 14:18
PROVIDERS: ADMIT Nurse Practitioner Family; ATTEND Internal Medicine

== ENCOUNTER 2020-02-29 05:17 | Observation (INO) ==
[2020-02-29] MEDS ORDERED: Morphine Sulfate 2 MG/ML SYRINGE IVP ONE ×2 (05:30→07:30)
[2020-02-29] MEDS ORDERED: 0.9 % Sodium Chloride 1,000 ML IV ONE (05:31)
[2020-02-29] MEDS ORDERED: Ondansetron 4 MG/2 ML VIAL IVP ONE (05:31)
[2020-02-29 05:49] LABS: Bacteria,Urine Few per hpf (None-Few); Bilirubin,Urine Small (Negative); Blood,Urine Small (Negative); Calcium Oxalate Crystals,Urine Present; Clarity,Urine Clear (Clear); Color,Urine Dark-Yellow (Yellow); Glucose,Urine (UA) Normal (Normal); Hyaline Casts,Urine Few per lpf (None Seen); Ketones,Urine Negative (Negative); Leukocyte Esterase,Urine Small (Negative); Mucus,Urine Few per lpf (None-Few); Nitrite,Urine Positive (Negative); Protein,Urine 70 mg/dL (Neg-Trace); RBC,Urine 15-30 per hpf (0-3); Specific Gravity,Urine 1.029 (1.010-1.025); Squamous Epithelial Cell,Urine Few per hpf (None-Few)
[2020-02-29 06:10] LABS: Basophils % 0.3 %; Eosinophils # 0.3 K/mcL (0.0-0.6); Eosinophils % 2.1 %; Hematocrit 43.6 % (35.3-44.9); Hemoglobin 14.4 g/dL (11.5-15.4); Immature Granulocytes % 0.4 % (0-4); Lymphocytes # 1.9 K/mcL (0.6-4.6); Mean Corpuscular Hemoglobin 30.8 pg (28.0-33.3); Mean Corpuscular Volume 93.4 fL (83.0-100.0); Monocytes % 7.2 %; Neutrophils # 10.2 K/mcL (1.6-8.9); Platelet Count 198 K/mcL (140-400); Red Blood Count 4.67 M/mcL (3.82-4.97); White Blood Count 13.5 K/mcL (4.3-11.1)
[2020-02-29 06:29] LABS: Calcium 9.8 mg/dL (8.6-10.3); Potassium 3.6 mEq/L (3.5-5.1)
[2020-02-29] MEDS ORDERED: cefTRIAXone 1,000 MG in 0.9 % Sodium Chloride Mini Bag 100 ML IVPB ONE (07:24)
[2020-02-29] MEDS ORDERED: Ketorolac 30 MG/ML VIAL IVP ONE (07:57)
[2020-02-29] MEDS ORDERED: Ondansetron 4 MG/2 ML VIAL IVP PRN ×2 (08:09→19:14)
[2020-02-29] MEDS ORDERED: Naloxone 0.4 MG/ML INJ IVP PRN ×2 (08:09→19:14)
[2020-02-29] MEDS ORDERED: *HR* HYDROmorphone (PF) 1 MG/ML SYRINGE IVP PRN (08:10)
[2020-02-29] MEDS ORDERED: *HR* Dextrose 50 % in Water (Vial) 50 ML VIAL IVP PRN ×2 (08:12→19:14)
[2020-02-29] MEDS ORDERED: Dextrose Gel 15 GM/37.5 ML TUBE PO PRN ×4 (08:12→19:14)
[2020-02-29] MEDS ORDERED: D5% in Water 1,000 ML IVC PRN ×2 (08:12→19:14)
[2020-02-29] MEDS: 0.9 % Sodium Chloride 1,000 ML IVC SCH ×2 (09:50→23:01)
[2020-02-29] MEDS: Insulin LISPRO 300 UNITS/3 ML VIAL SQ SCH ×2 (12:52→18:07)
[2020-02-29] MEDS ORDERED: Lactulose Oral Soln 20 GM/30 ML UDC PO PRN ×2 (16:40→19:14)
[2020-02-29] MEDS ORDERED: QUEtiapine Fumarate 100 MG TABLET PO PRN ×2 (16:40→19:14)
[2020-02-29] MEDS ORDERED: tiZANidine 4 MG TABLET PO PRN ×2 (16:40→19:14)
[2020-02-29] MEDS ORDERED: Aspirin 81 MG TAB.CHEW PO SCH (18:00)
[2020-02-29] MEDS ORDERED: *HR* Heparin 5,000 UNIT/ML VIAL SQ SCH (18:00)
[2020-02-29] MEDS ORDERED: Metoprolol 100 MG TABLET PO SCH (18:00)
[2020-02-29] MEDS ORDERED: *HR* Propofol 200 MG/20 ML VIAL IVP ONE (18:34)
[2020-02-29] MEDS ORDERED: *HR* Midazolam HCl 2 MG/2 ML VIAL ONE (18:34)
[2020-02-29] MEDS ORDERED: *HR* FentaNYL (PF) 100 MCG/2 ML VIAL ONE (18:34)
[2020-02-29] MEDS ORDERED: Ondansetron 4 MG/2 ML VIAL ONE (18:35)
[2020-02-29] MEDS ORDERED: Lidocaine -MPF 2% 2 ML VIAL ONE (18:35)
[2020-02-29] MEDS ORDERED: Dexamethasone 4 MG/ML VIAL ONE (18:35)
[2020-02-29] MEDS ORDERED: Isovue-300 50ML VIAL ONE (18:41)
[2020-02-29] MEDS ORDERED: 0.9 % Sodium Chloride 1,000 ML IVC SCH (19:14)
[2020-02-29] MEDS: *HR* HYDROmorphone PF 0.5 MG/0.5 ML SYRINGE IVP PRN (19:43)
[2020-02-29] MEDS: Gabapentin 300 MG CAPSULE PO SCH (20:14)
[2020-02-29] MEDS: *HR* Buprenorphine HCl 8 MG TAB.SUBL SL SCH (20:14)
[2020-02-29] MEDS ORDERED: *HR* Buprenorphine HCl 8 MG TAB.SUBL SL SCH (21:00)
[2020-02-29] MEDS ORDERED: Gabapentin 400 MG CAPSULE PO SCH (21:00)
[2020-03-01] MEDS: Insulin LISPRO 300 UNITS/3 ML VIAL SQ SCH ×3 (00:07→12:22)
[2020-03-01] MEDS: *HR* HYDROmorphone PF 0.5 MG/0.5 ML SYRINGE IVP PRN (03:49)
[2020-03-01 05:33] LABS: Basophils % 0.3 %; Eosinophils # 0.2 K/mcL (0.0-0.6); Hematocrit 37.6 % (35.3-44.9); Immature Granulocytes % 0.4 % (0-4); Lymphocytes # 1.9 K/mcL (0.6-4.6); Lymphocytes % 19.2 %; Mean Corpuscular Hemoglobin 32.1 pg (28.0-33.3); Mean Corpuscular Volume 97.4 fL (83.0-100.0); Mean Platelet Volume 10.4 fL (9.4-12.4); Monocytes % 10.1 %; Neutrophils # 6.9 K/mcL (1.6-8.9); Platelet Count 136 K/mcL (140-400); Red Blood Count 3.86 M/mcL (3.82-4.97); Red Cell Distribution Width 13.1 % (11.5-14.5); White Blood Count 10.1 K/mcL (4.3-11.1)
[2020-03-01 05:34] LABS: Hemoglobin 12.4 g/dL (11.5-15.4)
[2020-03-01 05:49] LABS: Calcium 9.1 mg/dL (8.6-10.3)
[2020-03-01] MEDS ORDERED: *HR* Heparin 5,000 UNIT/ML VIAL SQ SCH ×2 (06:00→18:00)
[2020-03-01] MEDS ORDERED: 0.9 % Sodium Chloride 1,000 ML IVC SCH ×2 (07:45→12:20)
[2020-03-01] MEDS: *HR* Buprenorphine HCl 8 MG TAB.SUBL SL SCH (08:21)
[2020-03-01] MEDS: Gabapentin 300 MG CAPSULE PO SCH (08:21)
[2020-03-01] MEDS ORDERED: cefTRIAXone 1,000 MG in Water for inj. (sterile) 10 ML IVP SCH ×2 (09:00)
[2020-03-01] MEDS ORDERED: Acetaminophen IV 1,000 MG/100 ML INFUS..BTL ONE (09:18)
[2020-03-01] MEDS ORDERED: Famotidine 20 MG/2 ML VIAL ONE (09:18)
[2020-03-01] MEDS ORDERED: *HR* FentaNYL (PF) 100 MCG/2 ML VIAL ONE (10:02)
[2020-03-01] MEDS ORDERED: Lidocaine -MPF 2% 2 ML VIAL ONE (10:02)
[2020-03-01] MEDS ORDERED: *HR* Midazolam HCl 2 MG/2 ML VIAL ONE (10:02)
[2020-03-01] MEDS ORDERED: *HR* Propofol 200 MG/20 ML VIAL IVP ONE (10:02)
[2020-03-01] MEDS ORDERED: Ondansetron 4 MG/2 ML VIAL ONE (10:06)
[2020-03-01] MEDS ORDERED: Dexamethasone 4 MG/ML VIAL ONE (10:06)
[2020-03-01] MEDS ORDERED: Isovue-300 50ML VIAL ONE (10:25)
[2020-03-01] MEDS ORDERED: Ondansetron 4 MG/2 ML VIAL IVP ONE (10:49)
[2020-03-01] MEDS ORDERED: *HR* OxyCODONE Immed Rel 5 MG TABLET PO PRN (10:49)
[2020-03-01] MEDS ORDERED: *HR* Promethazine 25 MG/ML VIAL IVP PRN (10:49)
[2020-03-01] MEDS ORDERED: tiZANidine 4 MG TABLET PO PRN (12:20)
[2020-03-01] MEDS ORDERED: Ondansetron 4 MG/2 ML VIAL IVP PRN (12:20)
[2020-03-01] MEDS ORDERED: *HR* HYDROmorphone PF 0.5 MG/0.5 ML SYRINGE IVP PRN (12:20)
[2020-03-01] MEDS ORDERED: Dextrose Gel 15 GM/37.5 ML TUBE PO PRN ×2 (12:20)
[2020-03-01] MEDS ORDERED: D5% in Water 1,000 ML IVC PRN (12:20)
[2020-03-01] MEDS ORDERED: Lactulose Oral Soln 20 GM/30 ML UDC PO PRN (12:20)
[2020-03-01] MEDS ORDERED: *HR* Dextrose 50 % in Water (Vial) 50 ML VIAL IVP PRN (12:20)
[2020-03-01] MEDS ORDERED: QUEtiapine Fumarate 100 MG TABLET PO PRN (12:20)
[2020-03-01] MEDS ORDERED: Naloxone 0.4 MG/ML INJ IVP PRN (12:20)
[2020-03-01 13:58] VITALS: BP 110/72
[2020-03-01] MEDS ORDERED: *HR* Buprenorphine HCl 8 MG TAB.SUBL SL SCH (15:00)
[2020-03-01] MEDS ORDERED: Gabapentin 300 MG CAPSULE PO SCH (15:00)
[2020-03-01] MEDS ORDERED: Aspirin 81 MG TAB.CHEW PO SCH (18:00)
[2020-03-01] MEDS ORDERED: Metoprolol 100 MG TABLET PO SCH ×2 (18:00)
[2020-03-01] MEDS ORDERED: Insulin LISPRO 300 UNITS/3 ML VIAL SQ SCH (18:00)
[2020-03-02] MEDS ORDERED: cefTRIAXone 1,000 MG in Water for inj. (sterile) 10 ML IVP SCH (09:00)
== END 2020-03-01 14:45 | disposition left against medical advice (07) ==
LOC: EMEROOARM 05:17 → 3ANU 05:17 → SUATTDRO 08:09 → 3ANU 08:56
PROVIDERS: ADMIT Internal Medicine; ATTEND Family Medicine

== ENCOUNTER 2020-05-13 22:14 | Observation (INO) ==
[2020-05-13] MEDS ORDERED: Isovue-370 500 ML BOTTLE IVP ONE (22:26)
[2020-05-13 22:42] LABS: Clarity,Urine Clear (Clear); Color,Urine Orange (Yellow)
[2020-05-13 22:46] LABS: Squamous Epithelial Cell,Urine Few per hpf (None-Few)
[2020-05-13 22:50] LABS: Basophils % 0.3 %; Eosinophils # 0.2 K/mcL (0.0-0.6); Eosinophils % 1.6 %; Hematocrit 35.7 % (35.3-44.9); Hemoglobin 11.8 g/dL (11.5-15.4); Immature Granulocytes % 0.3 % (0-4); Lymphocytes # 1.5 K/mcL (0.6-4.6); Lymphocytes % 11.6 %; Mean Corpuscular HGB Conc 33.1 g/dL (31.6-35.5); Mean Corpuscular Hemoglobin 31.9 pg (28.0-33.3); Mean Corpuscular Volume 96.5 fL (83.0-100.0); Monocytes # 1.1 K/mcL (0.0-1.3); Monocytes % 8.5 %; Neutrophils # 9.8 K/mcL (1.6-8.9); Platelet Count 268 K/mcL (140-400); Red Cell Distribution Width 12.1 % (11.5-14.5); Segmented Neutrophils % 77.7 %; White Blood Count 12.6 K/mcL (4.3-11.1)
[2020-05-13] MEDS ORDERED: Morphine Sulfate 2 MG/ML SYRINGE IVP ONE (23:04)
[2020-05-13] MEDS ORDERED: 0.9 % Sodium Chloride 1,000 ML IVC ONE (23:05)
[2020-05-13 23:13] LABS: Albumin 3.7 g/dL (3.5-5.7); Albumin/Globulin Ratio 0.8 (1.1-2.2); Bilirubin,Direct 0.1 mg/dL (0.0-0.2); Bilirubin,Indirect 0.3 mg/dL (0.0-1.0); Bilirubin,Total 0.4 mg/dL (0.3-1.0); Calcium 9.7 mg/dL (8.6-10.3); Globulin 4.8 g/dL (2.4-3.5); Potassium 3.9 mEq/L (3.5-5.1); Total Protein 8.5 g/dL (6.4-8.9)
[2020-05-14] MEDS ORDERED: cefTRIAXone 1,000 MG in 0.9 % Sodium Chloride Mini Bag 100 ML IVPB ONE ×2 (00:11→09:00)
[2020-05-14] MEDS ORDERED: 0.9 % Sodium Chloride 1,000 ML IVC ONE (00:18)
[2020-05-14] MEDS ORDERED: Naloxone 0.4 MG/ML INJ IVP PRN ×2 (01:11→18:34)
[2020-05-14] MEDS ORDERED: Ondansetron 4 MG/2 ML VIAL IVP PRN ×4 (01:11→18:34)
[2020-05-14] MEDS ORDERED: 0.9 % Sodium Chloride 1,000 ML IVC SCH (03:00)
[2020-05-14] MEDS ORDERED: D5% in Water 1,000 ML IVC PRN ×3 (05:50→18:34)
[2020-05-14] MEDS ORDERED: *HR* Dextrose 50 % in Water (Vial) 50 ML VIAL IVP PRN ×3 (05:50→18:34)
[2020-05-14] MEDS ORDERED: Dextrose Gel 15 GM/37.5 ML TUBE PO PRN ×6 (05:50→18:34)
[2020-05-14] MEDS: Insulin LISPRO 300 UNITS/3 ML VIAL SQ SCH ×2 (06:34→12:50)
[2020-05-14 06:41] LABS: Basophils % 0.2 %; Eosinophils # 0.2 K/mcL (0.0-0.6); Eosinophils % 1.5 %; Hemoglobin 11.2 g/dL (11.5-15.4); Immature Granulocytes % 0.4 % (0-4); Lymphocytes # 1.9 K/mcL (0.6-4.6); Lymphocytes % 14.9 %; Mean Corpuscular HGB Conc 32.9 g/dL (31.6-35.5); Mean Corpuscular Hemoglobin 32.4 pg (28.0-33.3); Mean Corpuscular Volume 98.3 fL (83.0-100.0); Mean Platelet Volume 10.3 fL (9.4-12.4); Monocytes # 1.3 K/mcL (0.0-1.3); Monocytes % 10.6 %; Neutrophils # 9.1 K/mcL (1.6-8.9); Platelet Count 258 K/mcL (140-400); Red Blood Count 3.46 M/mcL (3.82-4.97); Red Cell Distribution Width 12.1 % (11.5-14.5); Segmented Neutrophils % 72.4 %; White Blood Count 12.6 K/mcL (4.3-11.1)
[2020-05-14 06:44] LABS: INR 1.2; Prothrombin Time 13.9 Seconds (9.4-12.1)
[2020-05-14 06:47] LABS: Activated Partial Thrombo Time 25.3 Seconds (26.0-36.0)
[2020-05-14 07:02] LABS: Albumin 3.5 g/dL (3.5-5.7); Albumin/Globulin Ratio 0.8 (1.1-2.2); Bilirubin,Total 0.4 mg/dL (0.3-1.0); Calcium 9.6 mg/dL (8.6-10.3); Globulin 4.5 g/dL (2.4-3.5); Potassium 3.9 mEq/L (3.5-5.1)
[2020-05-14] MEDS ORDERED: Morphine Sulfate 2 MG/ML SYRINGE IVP PRN ×2 (10:58→18:34)
[2020-05-14] MEDS ORDERED: Hyoscyamine SL 0.125 MG TAB.SUBL SL PRN ×2 (15:42→18:34)
[2020-05-14] MEDS ORDERED: tiZANidine 4 MG TABLET PO PRN ×2 (15:42→18:34)
[2020-05-14] MEDS ORDERED: *HR* Midazolam HCl 2 MG/2 ML VIAL ONE (16:09)
[2020-05-14] MEDS ORDERED: *HR* FentaNYL (PF) 100 MCG/2 ML VIAL ONE (16:09)
[2020-05-14] MEDS ORDERED: *HR* Propofol 200 MG/20 ML VIAL IVP ONE (16:09)
[2020-05-14] MEDS ORDERED: Lidocaine -MPF 2% 2 ML VIAL ONE (16:09)
[2020-05-14] MEDS ORDERED: Ondansetron 4 MG/2 ML VIAL ONE (16:09)
[2020-05-14] MEDS ORDERED: Dexamethasone 4 MG/ML VIAL ONE (16:09)
[2020-05-14] MEDS ORDERED: Isovue-300 50ML VIAL ONE (16:35)
[2020-05-14] MEDS ORDERED: *HR* Meperidine 25 MG/ML SYRINGE IVP PRN ×2 (16:40→18:34)
[2020-05-14] MEDS ORDERED: *HR* HYDROmorphone PF 0.5 MG/0.5 ML SYRINGE IVP PRN ×2 (16:40→18:34)
[2020-05-14] MEDS ORDERED: Promethazine 6.25 MG in Water for inj. (sterile) 20 ML IVPB PRN ×2 (16:40→18:34)
[2020-05-14] MEDS ORDERED: Gentamicin 80 MG in 0.9 % Sodium Chloride 100 ML IVPB ONE (17:09)
[2020-05-14] MEDS ORDERED: Cholecalciferol (D-3) 1,000 UNIT (25MCG) TABLET PO SCH (18:00)
[2020-05-14] MEDS ORDERED: Aspirin 81 MG TAB.CHEW PO SCH (18:00)
[2020-05-14] MEDS ORDERED: Isovue-370 500 ML BOTTLE IVP ONE (18:34)
[2020-05-14 18:37] VITALS: BP 104/66
[2020-05-14] MEDS ORDERED: cefTRIAXone 1,000 MG in 0.9 % Sodium Chloride Mini Bag 100 ML IVPB SCH (20:00)
[2020-05-14] MEDS ORDERED: NON-FORMULARY MEDICATION 1 EACH EACH (Losartan Potassium [Cozaar] 50 MG) PO SCH (21:00)
[2020-05-14] MEDS ORDERED: Insulin LISPRO 300 UNITS/3 ML VIAL SQ SCH (21:00)
[2020-05-14] MEDS ORDERED: NON-FORMULARY MEDICATION 1 EACH EACH (Omeprazole [Prilosec] 40 MG) PO SCH (21:00)
[2020-05-14] MEDS ORDERED: Gabapentin 300 MG CAPSULE PO SCH (21:00)
[2020-05-14] MEDS ORDERED: Gabapentin 400 MG CAPSULE PO SCH (21:00)
[2020-05-15] MEDS ORDERED: Insulin LISPRO 300 UNITS/3 ML VIAL SQ SCH (07:30)
[2020-05-15] MEDS ORDERED: Metoprolol XL (24 HR) Succ 50 MG TAB.ER.24H PO SCH ×2 (09:00)
[2020-05-15] MEDS ORDERED: cefTRIAXone 2,000 MG in 0.9 % Sodium Chloride Mini Bag 100 ML IVPB SCH (09:00)
[2020-05-15] MEDS ORDERED: cefTRIAXone 2,000 MG in Water for inj. (sterile) 20 ML IVP SCH (09:00)
[2020-05-15] MEDS ORDERED: Cholecalciferol (D-3) 1,000 UNIT (25MCG) TABLET PO SCH (18:00)
[2020-05-15] MEDS ORDERED: Aspirin 81 MG TAB.CHEW PO SCH (18:00)
== END 2020-05-14 19:42 | disposition left against medical advice (07) ==
LOC: EMEROOARM 22:14 → 3ANU 22:14 → SUATTDRO 05-14 00:56 → 3ANU 05-14 01:40
PROVIDERS: ADMIT Internal Medicine; ATTEND Pharmacist